=== PATIENT | female | born 1950 | race Caucasian/White ===

== ENCOUNTER → 2021-10-21 | Outpatient (CLI) | payer MEDICARE, MEDICAID ==
[2021-10-21 16:58] LABS: HEMOGLOBIN 12.9 g/dL (11.5-16.0); MEAN CORPUSCULAR HEMOGLOBIN 29 pg (25-34); WHITE BLOOD COUNT 8.7 10^3/uL (4.3-11.0)
[2021-10-21 16:59] LABS: HEMATOCRIT 40 % (35-52); MEAN CORPUSCULAR HGB CONC 32 g/dL (32-36); MEAN CORPUSCULAR VOLUME 89 fL (80-99); MEAN PLATELET VOLUME 11.7 fL (9.0-12.2); PLATELET COUNT 336 10^3/uL (130-400)
[2021-10-21 17:11] LABS: POTASSIUM 4.5 MMOL/L (3.6-5.0)
[2021-10-21 17:12] LABS: ALBUMIN 4.2 GM/DL (3.2-4.5); BILIRUBIN,TOTAL 0.3 MG/DL (0.1-1.0); CALCIUM 9.2 MG/DL (8.5-10.1); CREATININE SERUM 1.11 MG/DL (0.60-1.30); TOTAL PROTEIN 6.7 GM/DL (6.4-8.2)
== END ==
PROVIDERS: ATTEND Family Medicine
DX: R06.2 Wheezing (principal)
CPT/HCPCS: 36415; 80053; 85027

== ENCOUNTER 2022-08-05 03:51 | Inpatient (IN) | payer MEDICARE, MEDICAID ==
[~2022-08-05] VITALS: Ht 149.9 cm; Wt 86.4 kg
[2022-08-05] MEDS ORDERED: methylPREDNISolone 125 MG (Solu-MEDROL) VIAL IV STA (03:54)
--- NOTE | 2022-08-05 03:54 | ED Dyspnea ---
General Stated Complaint: SOB History of Present Illness Date Seen by Provider: Aug 05, 2022 Time Seen by Provider: 03:53 Initial Comments 71-year-old female presents with shortness of breath. Patient shortness of breath started approximately 45 minutes to arrival. longterm reports that she only has a history of hypertension that she is a "model resident" and that she just came to the desk complaining of shortness of breath after "drinking too much water" EMS reports that when she arrived she is around 85 to 88% with a lot of wheezing. They gave her a DuoNeb in route with minimal relief. Patient is only on blood pressure medication. She has no allergies. Allergies and Home Medications Allergies Coded Allergies: No Known Drug Allergies (Unverified , 08/05/22) Patient Home Medication List Home Medication List Reviewed: Yes Review of Systems Review of Systems Constitutional: No chills, No fever EENTM: No throat pain, No throat swelling Respiratory: orthopnea, short of breath, stridor Cardiovascular: No chest pain, No palpitations Gastrointestinal: abdominal pain, nausea Genitourinary: no symptoms reported Musculoskeletal: no symptoms reported Skin: no symptoms reported Psychiatric/Neurological: No Symptoms Reported Endocrine: No Symptoms Reported Physical Exam Vital Signs Vital Signs - First Documented 08/05/22 03:51 Temp 36.5 Pulse 128 Resp 30 B/P (MAP) 174/127 (143) Pulse Ox 89 O2 Delivery OxyMask O2 Flow Rate 7.00 FiO2 88 Capillary Refill : Height, Weight, BMI Height: '" Weight: lbs. oz. kg; BMI Method: General Appearance: Anxious, Moderate Distress, Obese HEENT: Other (Stridor) Respiratory: Decreased Breath Sounds, Stridor Cardiovascular: Irregularly Irregular, Other (Mild lower extremity edema) Gastrointestinal: Soft, Tenderness (epigastric ) Neurologic/Psychiatric: Alert, Oriented x3 Skin: Normal Color, Warm/Dry Progress/Results/Core Measures Results/Orders Lab Results Laboratory Tests Test 08/05/22 03:56 08/05/22 04:45 Range/Units White Blood Count 11.8 H 4.3-11.0 10^3/uL Red Blood Count 4.80 3.80-5.11 10^6/uL Hemoglobin 12.9 11.5-16.0 g/dL Hematocrit 41 35-52 % Mean Corpuscular Volume 85 80-99 fL Mean Corpuscular Hemoglobin 27 25-34 pg Mean Corpuscular Hemoglobin Concent 32 32-36 g/dL Red Cell Distribution Width 15.5 H 10.0-14.5 % Platelet Count 331 130-400 10^3/uL Mean Platelet Volume 11.5 9.0-12.2 fL Immature Granulocyte % (Auto) 0 % Neutrophils (%) (Auto) 64 42-75 % Lymphocytes (%) (Auto) 27 12-44 % Monocytes (%) (Auto) 5 0-12 % Eosinophils (%) (Auto) 3 0-10 % Basophils (%) (Auto) 1 0-10 % Neutrophils # (Auto) 7.5 1.8-7.8 10^3/uL Lymphocytes # (Auto) 3.2 1.0-4.0 10^3/uL Monocytes # (Auto) 0.6 0.0-1.0 10^3/uL Eosinophils # (Auto) 0.4 H 0.0-0.3 10^3/uL Basophils # (Auto) 0.1 0.0-0.1 10^3/uL Immature Granulocyte # (Auto) 0.0 0.0-0.1 10^3/uL Sodium Level 140 135-145 MMOL/L Potassium Level 4.1 3.6-5.0 MMOL/L Chloride Level 104 98-107 MMOL/L Carbon Dioxide Level 23 21-32 MMOL/L Anion Gap 13 5-14 MMOL/L Blood Urea Nitrogen 19 H 7-18 MG/DL Creatinine 1.09 0.60-1.30 MG/DL Estimat Glomerular Filtration Rate 54 BUN/Creatinine Ratio 17 Glucose Level 214 H 70-105 MG/DL Calcium Level 9.1 8.5-10.1 MG/DL Corrected Calcium 8.9 8.5-10.1 MG/DL Magnesium Level 2.2 1.6-2.4 MG/DL Total Bilirubin 0.5 0.1-1.0 MG/DL Aspartate Amino Transf (AST/SGOT) 14 5-34 U/L Alanine Aminotransferase (ALT/SGPT) 9 0-55 U/L Alkaline Phosphatase 131 40-136 U/L Troponin I < 0.30 <0.30 NG/ML C-Reactive Protein 0.43 <0.50 MG/DL Pro-B-Type Natriuretic Peptide 4735.0 H <125.0 PG/ML Total Protein 7.3 6.4-8.2 GM/DL Albumin 4.3 3.2-4.5 GM/DL Blood Gas Puncture Site RT. BRACHIAL Blood Gas Patient Temperature 36.5 Arterial Blood pH 7.33 *L 7.37-7.43 Arterial Blood Partial Pressure CO2 44 35-45 MMHG Arterial Blood Partial Pressure O2 306 H 79-93 MMHG Arterial Blood HCO3 23 23-27 MMOL/L Arterial Blood Total CO2 24.6 21.0-31.0 MMOL/L Arterial Blood Oxygen Saturation 100 94-100 % Arterial Blood Base Excess -2.8 L -2.5-2.5 MMOL/L Constantine Test NA Blood Gas Ventilator Setting NO Blood Gas Inspired Oxygen 100% BPAP Lipase 76 8-78 U/L My Orders Orders - BENTON,EZEKIEL L DO Rt Epinephrine (Racemic Epinephrine 2.25 (08/05/22 04:00) Methylprednisolone Sod Succ (Solu-Medrol (08/05/22 03:54) Hypertonic Saline 3% Neb (Rt-Hypertonic (08/05/22 04:00) Svn Small Volume Nebulizer (08/05/22 03:54) Chest 1 View Ap/Pa Only (08/05/22 03:54) Cbc With Automated Diff (08/05/22 03:54) Comprehensive Metabolic Panel (08/05/22 03:54) Magnesium (08/05/22 03:54) Probnp Fs (08/05/22 03:54) Crp Fs (08/05/22 03:54) Troponin I Fs (08/05/22 03:54) Ekg Tracing (08/05/22 03:54) O2 (08/05/22 03:54) Monitor-Rhythm Ecg Trace Only (08/05/22 03:54) Arterial Blood Gas (08/05/22 04:09) Diltiazem Injection (Cardizem Injection) (08/05/22 04:30) Lipase (08/05/22 04:25) Bipap (Bilevel) Set Up (08/05/22 04:43) Diltiazem Injection (Cardizem Injection) (08/05/22 05:00) Medications Given in ED Current Medications Medications Dose Ordered Sig/Lucila Route Start Time Stop Time Status Last Admin Dose Admin Diltiazem HCl 10 mg ONCE ONCE IVP 08/05/22 04:30 08/05/22 04:31 DC 08/05/22 04:24 10 MG Diltiazem HCl 20 mg ONCE ONCE IVP 08/05/22 05:00 08/05/22 05:01 DC 08/05/22 05:04 20 MG Epinephrine 0.5 ml ONCE ONCE INH 08/05/22 04:00 08/05/22 04:01 DC 08/05/22 04:04 0.5 ML Sodium Chloride Hypertonic 15 ml ONCE ONCE IH 08/05/22 04:00 08/05/22 04:01 DC 08/05/22 04:04 15 ML Vital Signs/I&O 08/05/22 08/05/22 08/05/22 08/05/22 03:51 03:51 04:12 04:24 Temp 36.5 Pulse 128 120 Resp 30 B/P (MAP) 174/127 (143) 149/85 Pulse Ox 89 88 O2 Delivery OxyMask OxyMask O2 Flow Rate 7.00 7.00 100.00 FiO2 88 08/05/22 08/05/22 05:04 05:10 Pulse 105 93 Resp 24 B/P (MAP) 142/88 142/88 (106) Pulse Ox 97 O2 Delivery NIV Bilevel O2 Flow Rate 40.00 Progress Progress Note : Progress Note Patient responded very well to BiPAP with improvement of her oxygen and breathing. Stridor improved with BiPAP. Patient is x-ray appears to have bilateral pulmonary edema. Patient's heart rate improved with Cardizem from the 120s to 140s down to about 70s. Patient was feeling much better and resting comfortably. Patient to be transferred to [facility] in the ICU to Dr. Rios. Patient was transferred in stable condition. Initial ECG Impression Date: Aug 05, 2022 Initial ECG Impression Time: 04:12 Initial ECG Rate: 126 Initial ECG Rhythm: A Fib/Flutter Initial ECG Impression: Atrial Fibrillation w/RVR Diagnostic Imaging Diagonstic Imaging: Xray Plain Films/CT/US/NM/MRI: chest Comments Pulmonary edema Critical Care Note Critical Care Total Time (minutes) 30 Progress Patient improved from acute respiratory distress been much more stable and improvement in heart rate. Patient admitted to ICU Departure Impression Primary Impression: Atrial fibrillation with RVR Additional Impression: Pulmonary edema Qualified Codes: J81.0 - Acute pulmonary edema Disposition: 30 STILL A PATIENT Condition: Improved Admissions Decision to Admit Reason: Admit from ER (General) Decision to Admit/Date: Aug 05, 2022 Time/Decision to Admit Time: 06:15 EZEKIEL BENTON DO Aug 05, 2022 03:54
[2022-08-05] MEDS ORDERED: RT-epiNEPHrine (RACEMIC) 2.25% 0.5 ML VIAL INH ONE (04:00)
[2022-08-05] MEDS ORDERED: RT-HYPERTONIC SALINE 3% 4 ML NEB IH ONE (04:00)
[2022-08-05 04:07] LABS: BASOPHILS # (AUTO) 0.1 10^3/uL (0.0-0.1); BASOPHILS % (AUTO) 1 % (0-10); EOSINOPHILS # (AUTO) 0.4 10^3/uL (0.0-0.3); EOSINOPHILS % (AUTO) 3 % (0-10); HEMATOCRIT 41 % (35-52); HEMOGLOBIN 12.9 g/dL (11.5-16.0); LYMPHOCYTES # (AUTO) 3.2 10^3/uL (1.0-4.0); LYMPHOCYTES % (AUTO) 27 % (12-44); MEAN CORPUSCULAR HEMOGLOBIN 27 pg (25-34); MEAN CORPUSCULAR HGB CONC 32 g/dL (32-36); MEAN CORPUSCULAR VOLUME 85 fL (80-99); MEAN PLATELET VOLUME 11.5 fL (9.0-12.2); MONOCYTES # (AUTO) 0.6 10^3/uL (0.0-1.0); MONOCYTES % (AUTO) 5 % (0-12); NEUTROPHILS # (AUTO) 7.5 10^3/uL (1.8-7.8); NEUTROPHILS % (AUTO) 64 % (42-75); PLATELET COUNT 331 10^3/uL (130-400); WHITE BLOOD COUNT 11.8 10^3/uL (4.3-11.0)
[2022-08-05 04:52] LABS: BUN/CREATININE RATIO 17; CALCIUM 9.1 MG/DL (8.5-10.1); CARBON DIOXIDE 23 MMOL/L (21-32); CHLORIDE 104 MMOL/L (98-107); CREATININE SERUM 1.09 MG/DL (0.60-1.30); GFR ESTIMATED 54; GLUCOSE 214 MG/DL (70-105); POTASSIUM 4.1 MMOL/L (3.6-5.0); SODIUM 140 MMOL/L (135-145)
[2022-08-05 04:53] LABS: ALANINE AMINOTRANSFERASE 9 U/L (0-55); ALBUMIN 4.3 GM/DL (3.2-4.5); ALKALINE PHOSPHATASE 131 U/L (40-136); BILIRUBIN,TOTAL 0.5 MG/DL (0.1-1.0); MAGNESIUM 2.2 MG/DL (1.6-2.4); TOTAL PROTEIN 7.3 GM/DL (6.4-8.2)
[2022-08-05 05:06] LABS: ABG BASE EXCESS -2.8 MMOL/L (-2.5-2.5); ABG OXYGEN SATURATION 100 % (94-100); ABG PCO2 44 MMHG (35-45); ABG PH 7.33 (7.37-7.43); ABG PO2 306 MMHG (79-93); ABG TCO2 24.6 MMOL/L (21.0-31.0)
[2022-08-05 05:07] LABS: INSPIRED O2 100% BPAP; PATIENT TEMP 36.5; VENTILATOR NO
--- NOTE | 2022-08-05 06:43 | Diagnostic Imaging Report ---
Indication: Shortness of breath. No previous for comparison. FINDINGS: There is cardiomegaly. Increased interstitial and alveolar infiltrates are noted bilaterally most prominently in the lower lungs. No pneumothorax or pleural effusion. IMPRESSION: Cardiomegaly with bilateral infiltrates. Findings could be secondary to inflammation or congestive failure. Dictated by: Dictated on workstation # [id number]
[2022-08-05] MEDS ORDERED: ENOXAPARIN 150 MG/ML (LOVENOX) SYR SQ SCH (09:30)
[2022-08-05] MEDS ORDERED: FUROSEMIDE 40 MG/4 ML INJ (LASIX) IVP NR (09:30)
[2022-08-05] MEDS: ENOXAPARIN 80 MG/0.8 ML (LOVENOX) SYR SQ SCH ×2 (09:44→22:40)
--- NOTE | 2022-08-05 11:13 | History & Physical ---
HPI History of Present Illness: Pt is wearing bipap which limits history. She says she is here because she drank too much water. She denies coughing or gagging while drinking. When asked how much she drank, she says she drank with a straw. This was around 1 am, and after that she became short of breath. In the ER she was found to have wheezing, a fib with RVR and pulmonary edema on CXR. She denies any PMH besides HTN. She specifically denies lung disease, but review of clinic chart does show COPD on her problem list and albuterol in her med list. Source: patient Exam Limitations: clinical condition Date seen by provider: Aug 05, 2022 Time Seen by Provider: 10:05 Attending Physician Spencer Dowling MD PCP Admitting Physician: Ayesha Rios MD Attending Physician: Ayesha Rios MD Consult Date of Admission Aug 05, 2022 at 08:52 Home Medications Home Medications Reviewed patient Home Medication Reconciliation performed by pharmacy medication reconciliations land mobile radio technician and/or nursing. Patients Allergies have been reviewed. 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 Past Medical History PMHx HTN Family Medical History Significant Family History: No Pertinent Family Hx Review of Systems ([facility]) Constitutional: other (unable to obtain due to clinical condition) Reviewed Test Results Reviewed Test Results Lab Laboratory Tests Test 08/05/22 03:56 08/05/22 04:45 08/05/22 06:27 08/05/22 09:57 Range/Units White Blood Count 11.8 H 4.3-11.0 10^3/uL Red Blood Count 4.80 3.80-5.11 10^6/uL Hemoglobin 12.9 11.5-16.0 g/dL Hematocrit 41 35-52 % Mean Corpuscular Volume 85 80-99 fL Mean Corpuscular Hemoglobin 27 25-34 pg Mean Corpuscular Hemoglobin Concent 32 32-36 g/dL Red Cell Distribution Width 15.5 H 10.0-14.5 % Platelet Count 331 130-400 10^3/uL Mean Platelet Volume 11.5 9.0-12.2 fL Immature Granulocyte % (Auto) 0 % Neutrophils (%) (Auto) 64 42-75 % Lymphocytes (%) (Auto) 27 12-44 % Monocytes (%) (Auto) 5 0-12 % Eosinophils (%) (Auto) 3 0-10 % Basophils (%) (Auto) 1 0-10 % Neutrophils # (Auto) 7.5 1.8-7.8 10^3/uL Lymphocytes # (Auto) 3.2 1.0-4.0 10^3/uL Monocytes # (Auto) 0.6 0.0-1.0 10^3/uL Eosinophils # (Auto) 0.4 H 0.0-0.3 10^3/uL Basophils # (Auto) 0.1 0.0-0.1 10^3/uL Immature Granulocyte # (Auto) 0.0 0.0-0.1 10^3/uL Sodium Level 140 135-145 MMOL/L Potassium Level 4.1 3.6-5.0 MMOL/L Chloride Level 104 98-107 MMOL/L Carbon Dioxide Level 23 21-32 MMOL/L Anion Gap 13 5-14 MMOL/L Blood Urea Nitrogen 19 H 7-18 MG/DL Creatinine 1.09 0.60-1.30 MG/DL Estimat Glomerular Filtration Rate 54 BUN/Creatinine Ratio 17 Glucose Level 214 H 70-105 MG/DL Calcium Level 9.1 8.5-10.1 MG/DL Corrected Calcium 8.9 8.5-10.1 MG/DL Magnesium Level 2.2 1.6-2.4 MG/DL Total Bilirubin 0.5 0.1-1.0 MG/DL Aspartate Amino Transf (AST/SGOT) 14 5-34 U/L Alanine Aminotransferase (ALT/SGPT) 9 0-55 U/L Alkaline Phosphatase 131 40-136 U/L Troponin I < 0.30 <0.30 NG/ML C-Reactive Protein 0.43 <0.50 MG/DL Pro-B-Type Natriuretic Peptide 4735.0 H <125.0 PG/ML Total Protein 7.3 6.4-8.2 GM/DL Albumin 4.3 3.2-4.5 GM/DL Blood Gas Puncture Site RT. BRACHIAL Blood Gas Patient Temperature 36.5 Arterial Blood pH 7.33 *L 7.37-7.43 Arterial Blood Partial Pressure CO2 44 35-45 MMHG Arterial Blood Partial Pressure O2 306 H 79-93 MMHG Arterial Blood HCO3 23 23-27 MMOL/L Arterial Blood Total CO2 24.6 21.0-31.0 MMOL/L Arterial Blood Oxygen Saturation 100 94-100 % Arterial Blood Base Excess -2.8 L -2.5-2.5 MMOL/L Constantine Test NA Blood Gas Ventilator Setting NO Blood Gas Inspired Oxygen 100% BPAP Lipase 76 8-78 U/L SARS-CoV-2 RNA (RT-PCR) Not Detected Not Detecte Thyroid Stimulating Hormone (TSH) 0.84 0.35-4.94 UIU/ML Radiology CXR 08/05/22:" IMPRESSION: Cardiomegaly with bilateral infiltrates. Findings could be secondary to inflammation or congestive failure." Physical Exam-([facility]) Physical Exam Vital Signs VS - Last 72 Hours, by Label 08/05/22 08/05/22 08/05/22 08/05/22 03:51 03:51 04:12 04:24 Temp 36.5 Pulse 128 120 Resp 30 B/P (MAP) 174/127 (143) 149/85 Pulse Ox 89 88 O2 Delivery OxyMask OxyMask O2 Flow Rate 7.00 7.00 100.00 FiO2 88 08/05/22 08/05/22 08/05/22 08/05/22 05:04 05:10 07:45 08:50 Temp 36.5 Pulse 105 93 79 Resp 24 24 B/P (MAP) 142/88 142/88 (106) 138/80 Pulse Ox 97 97 95 O2 Delivery NIV Bilevel NIV Bilevel NIV Bilevel O2 Flow Rate 40.00 7.00 7.00 FiO2 40 08/05/22 08/05/22 09:00 09:15 Pulse 107 101 Resp 40 B/P (MAP) 130/112 (118) Pulse Ox 96 O2 Delivery NIV Bilevel O2 Flow Rate 40.00 Capillary Refill : Less Than 3 Seconds General Appearance: mild distress Respiratory: wheezing Cardiovascular: no murmur, irregularly irregular Peripheral Pulses: 2+ Dorsalis Pedis (R), 2+ Left Dors-Pedis (L) Gastrointestinal: normal bowel sounds, non tender, soft Extremities: no pedal edema Neurologic/Psychiatric: alert, normal mood/affect, oriented x 3 Skin: warm/dry Assessment/Plan Assessment/Plan Admission Status: Inpatient Order (span 2 midnights) Reason for Inpatient Admission: New onset a fib and suspected CHF requiring bipap (1) Respiratory failure Status: Acute Assessment & Plan: Improved with bipap, etiology pulmonary edema vs COPD exacerbation. Qualifiers: Qualified Codes: J96.01 - Acute respiratory failure with hypoxia (2) Pulmonary edema Status: Acute Assessment & Plan: IV lasix x 1 now, echocardiogram ordered. Qualifiers: Qualified Codes: J81.0 - Acute pulmonary edema (3) Atrial fibrillation with RVR Status: Acute Assessment & Plan: New onset a fib, improved with one dose of cardizem in ER, Cardiology consulted, appreciate recommendations. Echo pending. TSH pending. Enoxaparin treatment dose started. (4) Hypertension Status: Chronic Assessment & Plan: Resume home meds Qualifiers: Qualified Codes: I10 - Essential (primary) hypertension (5) COPD (chronic obstructive pulmonary disease) Status: Chronic Assessment & Plan: Per chart review, although patient denies. Received steroids and breathing treatment in ER without much improvement in wheezing, unclear if COPD exacerbation vs CHF and pulmonary edema. Amee. (6) group home resident Status: Chronic Assessment & Plan: Pt unable to clarify why she is an NH resident, states she had a leg fracture a few years ago, but is able to walk now with walker. Per clinic chart review has diagnosis of cognitive dysfunction. Is alert and oriented this morning. (7) DVT prophylaxis Status: Acute Assessment & Plan: Treatment dose enoxaparin AYESHA RIOS MD Aug 05, 2022 11:12
[2022-08-05] MEDS ORDERED: LISI5TAB20 PO (11:56)
[2022-08-05] MEDS ORDERED: ACET-2267 PO (11:56)
[2022-08-05] MEDS ORDERED: POLY17PO6 PO (11:56)
[2022-08-05] MEDS ORDERED: MAGN400O7 PO (11:56)
[2022-08-05] MEDS ORDERED: ATOR10TA66 PO (11:56)
[2022-08-05] MEDS ORDERED: MAG355OR17 PO (11:56)
[2022-08-05] MEDS ORDERED: FAMO10TA43 PO (11:56)
[2022-08-05] MEDS ORDERED: CALC500T7 PO (11:56)
[2022-08-05] MEDS ORDERED: NYST15CR35 TP (12:12)
--- NOTE | 2022-08-05 12:31 | Tele-ICU Consult ---
History of Present Illness History of Present Illness Date Seen by Provider: Aug 05, 2022 Time Seen by Provider: 12:30 Date of Admission (Tele-ICU Physician , consultation) Available chart/ vitals / labs / Images reviewed H&P is from ER notes Patient's information available about PMH, Shx, Fhx allergy reviewed inEMR. ROS as per chart and RN report Now in ICU, hemodynamically stable Video assessment done using teleICU camera, rest of exam as per RN Discussed with RN. Consultants: Hospital course: (08/05) 71F Admitted from ER - for CHF, rapid afib--SR upon arrival to ICU A/P Acute reso failure due to pulm edema - placed on BIPAP in ER - to wean off -responded to Lasix A fib / RVR - new dx , TSH pending - AC with lovenox - ECHO - card consulted Dyspnea/ hypoxia on presentation - presented with wheezing, was tx with Solumedrol and Nebs in ER - can be related to pulm edema -->> re -eval needs for br-dilators Leiulocytosis - ? reactive - check UA Lines : periph , (Central Line Necessity Reviewed) Christianson: 08/05 OG: Nutrition: Analgesia: Anxiety/ delirium VTE Prophylaxis: lovenox full dose Stress Ulcer Prophylaxis: na Plans in collaboration with bedside consultants and IM MDs. Discussed with RN to reach out if any questions or concerns A total of 31 minutes of critical care time was devoted to this patient today, required to treat and/or prevent further deterioration of critical care condition ( as above ) . Allergies and Home Medications Allergies Coded Allergies: Penicillins (Verified Allergy, Unknown, 08/05/22) prednisone (Verified Allergy, Unknown, 08/05/22) Home Medications Acetaminophen 500 Mg Tablet, 1,000 MG PO Q6H PRN for PAIN-MILD (1-4), (Reported) Atorvastatin Calcium 10 Mg Tablet, 10 MG PO HS, (Reported) Calcium Carbonate 200 Mg Calcium (500 Mg) Tab.chew, 200 MG PO QID PRN for INDIGESTION, (Reported) Famotidine 10 Mg Tablet, 10 MG PO BID, (Reported) Lisinopril 5 Mg Tablet, 5 MG PO DAILY, (Reported) HOLD AND CALL DR. PALACIOS IF SBP IS LESS THAN OR EQUAL 90 OR GREATER THEN OR EQUAL TO 160 Mag Hydrox/Al Hydrox/Simeth 400 Mg-400 Mg-40 Mg/5 Ml Oral.susp, 30 ML PO Q4H PRN for INDIGESTION, (Reported) Magnesium Hydroxide 400 Mg/5 Ml Oral.susp, 30 ML PO PRN PRN for CONSTIPATION-7TH LINE, (Reported) Nystatin 100,000 Unit/Gram Cream..g., 1 APPLIC TP Q12H PRN for SKIN CONDITION, (Reported) APPLY TO ABDOMINAL FOLDS AND GROIN Polyethylene Glycol 3350 17 Gram Powd.pack, 17 GM PO DAILY PRN for CONSTIPATION- 2ND LINE, (Reported) Past Medical/Social/Family Hx Patient Social History Tobacco Use?: Yes Tobacco type used: Cigarettes Smoking Status: Current Everyday Smoker Use of E-Cig and/or Vaping dev: No Substance use?: No Alcohol Use?: No Pt stated abuse/neglect: No Immunizations Up To Date Influenza Vaccine Up-to-Date: Yes; Up-to-Date Current Status status: No Advance Directives: No Communicates: Verbally Primary Language: Citizen Of [place] Preferred Spoken Language: Citizen [place] Is interpretation needed?: No Implanted or Applied Medical D: None Past Medical History PMHx HTN Review of Systems Constitutional: see HPI Focused Exam Height, Weight, BMI Height: '" Weight: lbs. oz. kg; 39.74 BMI Method: Exam Exam Patient acknowledged, consented, and participated in this virtual visit which was conducted using real time audio/video Vital Signs Date Time Temp Pulse Resp B/P (MAP) Pulse Ox O2 Delivery O2 Flow Rate FiO2 08/05/22 11:00 87 17 139/91 (107) 96 NIV Bilevel 35.00 08/05/22 10:00 96 20 143/96 (112) 92 NIV Bilevel 40.00 08/05/22 09:15 101 08/05/22 09:00 107 40 130/112 (118) 96 NIV Bilevel 40.00 08/05/22 08:50 95 NIV Bilevel 40 08/05/22 07:45 36.5 79 24 138/80 97 NIV Bilevel 7.00 7.00 08/05/22 05:10 93 24 142/88 (106) 97 NIV Bilevel 40.00 08/05/22 05:04 105 142/88 08/05/22 04:24 120 149/85 08/05/22 04:12 100.00 08/05/22 03:51 88 OxyMask 7.00 88 08/05/22 03:51 36.5 128 30 174/127 (143) 89 OxyMask 7.00 Height & Weight Height: '" Weight: lbs. oz. kg; 39.74 BMI Method: General Appearance: No Apparent Distress, Anxious, Moderate Distress, Obese HEENT: Other (Stridor) Respiratory: Decreased Breath Sounds, Stridor Cardiovascular: Irregularly Irregular, Other (Mild lower extremity edema) Capillary Refill: Less Than 3 Seconds Peripheral Pulses: 2+ Dorsalis Pedis (R), 2+ Left Dors-Pedis (L) Gastrointestinal: normal bowel sounds, non tender, soft Neurologic/Psychiatric: Alert, Oriented x3 Skin: Normal Color, Warm/Dry Results Lab Laboratory Tests 08/05/22 03:56 Assessment/Plan Assessment/Plan 1 DESMOND CUEVAS MD Aug 05, 2022 12:30
--- NOTE | 2022-08-05 12:52 | Consultation-Cardiology ---
HPI-Cardiology Cardiology Consultation Date of Consultation 08/05/22 Date of Admission Time Seen by Provider: 12:48 Indication: Tachycardia HPI 71-year-old lady with no significant past cardiac history, came in for increasing shortness of breath, currently on BiPAP. Unable to obtain full history, history was obtained by reviewing her record. Patient did not have chest pain, she was noted to have tachycardia with irregular heartbeat suspicious of underlying atrial fibrillation Home Medications & Allergies Allergies: Coded Allergies: Penicillins (Verified Allergy, Unknown, 08/05/22) prednisone (Verified Allergy, Unknown, 08/05/22) Home Medication List Reviewed: Yes AOP-[id number] Hx Patient Social History Marital Status: Smoking Status: Current Everyday Smoker Have you traveled recently?: No Alcohol Use?: No Past Medical History Discussed below Family Medical History Significant Family History: No Pertinent Family Hx Family Medical Hx Noncontributory Review of Systems-General Review of Systems Constitutional: see HPI, malaise, weakness EENTM: see HPI; No throat pain, No throat swelling Respiratory: see HPI, orthopnea, short of breath, stridor Cardiovascular: see HPI; No chest pain; edema; No palpitations Gastrointestinal: see HPI, abdominal pain, nausea Genitourinary: no symptoms reported, see HPI Musculoskeletal: no symptoms reported Skin: no symptoms reported, see HPI Psychiatric/Neurological: No Symptoms Reported, See HPI Reviewed Test Results Reviewed Test Results Lab Laboratory Tests Test 08/05/22 03:56 08/05/22 04:45 08/05/22 06:27 08/05/22 09:57 Range/Units White Blood Count 11.8 H 4.3-11.0 10^3/uL Red Blood Count 4.80 3.80-5.11 10^6/uL Hemoglobin 12.9 11.5-16.0 g/dL Hematocrit 41 35-52 % Mean Corpuscular Volume 85 80-99 fL Mean Corpuscular Hemoglobin 27 25-34 pg Mean Corpuscular Hemoglobin Concent 32 32-36 g/dL Red Cell Distribution Width 15.5 H 10.0-14.5 % Platelet Count 331 130-400 10^3/uL Mean Platelet Volume 11.5 9.0-12.2 fL Immature Granulocyte % (Auto) 0 % Neutrophils (%) (Auto) 64 42-75 % Lymphocytes (%) (Auto) 27 12-44 % Monocytes (%) (Auto) 5 0-12 % Eosinophils (%) (Auto) 3 0-10 % Basophils (%) (Auto) 1 0-10 % Neutrophils # (Auto) 7.5 1.8-7.8 10^3/uL Lymphocytes # (Auto) 3.2 1.0-4.0 10^3/uL Monocytes # (Auto) 0.6 0.0-1.0 10^3/uL Eosinophils # (Auto) 0.4 H 0.0-0.3 10^3/uL Basophils # (Auto) 0.1 0.0-0.1 10^3/uL Immature Granulocyte # (Auto) 0.0 0.0-0.1 10^3/uL Sodium Level 140 135-145 MMOL/L Potassium Level 4.1 3.6-5.0 MMOL/L Chloride Level 104 98-107 MMOL/L Carbon Dioxide Level 23 21-32 MMOL/L Anion Gap 13 5-14 MMOL/L Blood Urea Nitrogen 19 H 7-18 MG/DL Creatinine 1.09 0.60-1.30 MG/DL Estimat Glomerular Filtration Rate 54 BUN/Creatinine Ratio 17 Glucose Level 214 H 70-105 MG/DL Calcium Level 9.1 8.5-10.1 MG/DL Corrected Calcium 8.9 8.5-10.1 MG/DL Magnesium Level 2.2 1.6-2.4 MG/DL Total Bilirubin 0.5 0.1-1.0 MG/DL Aspartate Amino Transf (AST/SGOT) 14 5-34 U/L Alanine Aminotransferase (ALT/SGPT) 9 0-55 U/L Alkaline Phosphatase 131 40-136 U/L Troponin I < 0.30 <0.30 NG/ML C-Reactive Protein 0.43 <0.50 MG/DL Pro-B-Type Natriuretic Peptide 4735.0 H <125.0 PG/ML Total Protein 7.3 6.4-8.2 GM/DL Albumin 4.3 3.2-4.5 GM/DL Blood Gas Puncture Site RT. BRACHIAL Blood Gas Patient Temperature 36.5 Arterial Blood pH 7.33 *L 7.37-7.43 Arterial Blood Partial Pressure CO2 44 35-45 MMHG Arterial Blood Partial Pressure O2 306 H 79-93 MMHG Arterial Blood HCO3 23 23-27 MMOL/L Arterial Blood Total CO2 24.6 21.0-31.0 MMOL/L Arterial Blood Oxygen Saturation 100 94-100 % Arterial Blood Base Excess -2.8 L -2.5-2.5 MMOL/L Constantine Test NA Blood Gas Ventilator Setting NO Blood Gas Inspired Oxygen 100% BPAP Lipase 76 8-78 U/L SARS-CoV-2 RNA (RT-PCR) Not Detected Not Detecte Thyroid Stimulating Hormone (TSH) 0.84 0.35-4.94 UIU/ML Radiology CXR 08/05/22:" IMPRESSION: Cardiomegaly with bilateral infiltrates. Findings could be secondary to inflammation or congestive failure. Physical Exam Physical Exam Vital Signs Vital Signs - First Documented 08/05/22 03:51 Temp 36.5 Pulse 128 Resp 30 B/P (MAP) 174/127 (143) Pulse Ox 89 O2 Delivery OxyMask O2 Flow Rate 7.00 FiO2 88 Capillary Refill : Less Than 3 Seconds Height, Weight, BMI Height: '" Weight: lbs. oz. kg; 39.74 BMI Method: General Appearance: No Apparent Distress, Anxious, Moderate Distress, Obese Eyes: Bilateral Eye Normal Inspection, Bilateral Eye PERRL, Bilateral Eye EOMI HEENT: Other Neck: Full Range of Motion, Normal Inspection, Non Tender, Supple, Carotid Bruit Respiratory: Decreased Breath Sounds, Stridor Cardiovascular: Irregularly Irregular, Other Gastrointestinal: Soft, Tenderness (epigastric ) Back: Normal Inspection, No CVA Tenderness, No Vertebral Tenderness Extremity: Normal Capillary Refill, Normal Inspection, Normal Range of Motion, Non Tender, No Calf Tenderness, No Pedal Edema Neurologic/Psychiatric: Alert, Oriented x3 Skin: Normal Color, Warm/Dry Lymphatic: No Adenopathy A/P-Cardiology Admission Diagnosis Acute respiratory failure Multifocal atrial tachycardia Pulmonary edema Hypertension Assessment/Plan Acute respiratory failure, maintained on BiPAP Receiving diuretics, improving slowly. Probably secondary to pulmonary edema Irregular heart rate with tachycardia, review of EKG showing multifocal atrial tachycardia. Probably secondary to hypoxemia. Continue with BiPAP and I will add low-dose beta-blockers. I will evaluate 2D echocardiogram Congestive heart failure, acute left ventricular systolic dysfunction, probably secondary to hypoxemia and tachycardia. I will evaluate 2D echo, started on diuretics Hypertension, maintained on lisinopril as an outpatient Continue to monitor blood pressure and restart home medication Patient is a [facility] resident BEAN CARDONA MD Aug 05, 2022 12:52
[2022-08-05] MEDS: meTOprolol 5 MG/5 ML (LOPRESSOR) VIAL IV SCH ×3 (13:10→23:40)
[2022-08-05] MEDS ORDERED: ACETAMINOPHEN 500 MG TAB (TYLENOL) PO PRN (13:15)
[2022-08-05] MEDS ORDERED: MILK OF MAGNESIA 400 MG/5 ML 30 ML UDC PO PRN (13:15)
[2022-08-05] MEDS ORDERED: NYSTATIN CREAM (MYCOSTATIN) 30 GM TUBE TP PRN (13:15)
[2022-08-05] MEDS ORDERED: polyethylene glycoL POWDER 17 GM (MIRALAX) PACK PO PRN (13:15)
[2022-08-05] MEDS ORDERED: ANTACID SUSP 30 ML UDC (MYLANTA) PO PRN (13:15)
[2022-08-05 13:23] LABS: BILIRUBIN,URINE NEGATIVE (NEGATIVE); CLARITY,URINE CLEAR; COLOR,URINE YELLOW; GLUCOSE, URINE (UA) 1+ (NEGATIVE); KETONES,URINE NEGATIVE (NEGATIVE); LEUKOCYTE ESTERASE ,URINE NEGATIVE (NEGATIVE); NITRITE,URINE NEGATIVE (NEGATIVE); PROTEIN,URINE NEGATIVE (NEGATIVE)
[2022-08-05 13:45] LABS: BACTERIA,URINE NEGATIVE /HPF; RBC,URINE 0-2 /HPF
[2022-08-05] MEDS ORDERED: MAGNESIUM 1 GM/100 ML IVPB 200 ML IV ONE (14:21)
[2022-08-05] MEDS: MAGNESIUM 1 GM/100 ML IVPB 100 ML IV SCH ×2 (14:32→14:35)
[2022-08-05 14:36] LABS: ABG BASE EXCESS 2.8 MMOL/L (-2.5-2.5); ABG OXYGEN SATURATION 97 % (94-100); ABG PCO2 38 MMHG (35-45); ABG PH 7.45 (7.37-7.43); ABG PO2 66 MMHG (79-93)
[2022-08-05 14:39] LABS: ALLENS TEST YES-POS; BASOPHILS % (AUTO) 0 % (0-10); EOSINOPHILS % (AUTO) 0 % (0-10); HEMATOCRIT 41 % (35-52); HEMOGLOBIN 12.9 g/dL (11.5-16.0); INSPIRED O2 35%; LYMPHOCYTES # (AUTO) 0.4 10^3/uL (1.0-4.0); LYMPHOCYTES % (AUTO) 6 % (12-44); MEAN CORPUSCULAR HEMOGLOBIN 27 pg (25-34); MEAN CORPUSCULAR HGB CONC 32 g/dL (32-36); MEAN CORPUSCULAR VOLUME 85 fL (80-99); MEAN PLATELET VOLUME 11.2 fL (9.0-12.2); MONOCYTES # (AUTO) 0.1 10^3/uL (0.0-1.0); MONOCYTES % (AUTO) 1 % (0-12); NEUTROPHILS # (AUTO) 6.1 10^3/uL (1.8-7.8); NEUTROPHILS % (AUTO) 92 % (42-75); PLATELET COUNT 277 10^3/uL (130-400); VENTILATOR NO; WHITE BLOOD COUNT 6.7 10^3/uL (4.3-11.0)
[2022-08-05] MEDS: RT-ALBUTEROL/IPRATROPIUM 3 ML (DUONEB) VIAL INH SCH ×3 (14:46→22:59)
[2022-08-05 14:48] LABS: PROTHROMBIN TIME PATIENT 13.7 SEC (12.2-14.7)
[2022-08-05 14:58] LABS: ALBUMIN 4.1 GM/DL (3.2-4.5); BILIRUBIN,TOTAL 0.7 MG/DL (0.1-1.0); CALCIUM 8.9 MG/DL (8.5-10.1); CREATININE SERUM 1.22 MG/DL (0.60-1.30); PHOSPHORUS 3.8 MG/DL (2.3-4.7); TOTAL PROTEIN 7.1 GM/DL (6.4-8.2)
[2022-08-05 15:04] LABS: ATYPICAL LYMPHOCYTES 1 %; BAND NEUTROPHILS 1 %; EOSINOPHILS % (MANUAL) 1 %; LYMPHOCYTES % (MANUAL) 7 %; MONOCYTES % (MANUAL) 2 %; NEUTROPHILS % (MANUAL) 88 %
[2022-08-05 15:05] LABS: HYPERSEGMENTED NEUT SLIGHT; MICROCYTOSIS SLIGHT
[2022-08-05] MEDS: FUROSEMIDE 40 MG/4 ML INJ (LASIX) IVP SCH (17:15)
[2022-08-05] MEDS: FAMOTIDINE 20 MG (PEPCID) TABLET PO SCH (20:01)
[2022-08-05] MEDS: AtorvaSTATin TABLET 10 MG TABLET PO SCH (20:01)
[2022-08-05] MEDS: CALCIUM CARBONATE 500 MG (TUMS) TAB.CHEW PO PRN (20:01)
[2022-08-05] MEDS ORDERED: NON-FORMULARY MEDICATION 1 EA EA (Famotidine (Pepcid AC) 10 MG) PO SCH (21:00)
[2022-08-06] MEDS ORDERED: CATHETER FLUSH 10 ML SYR IVP PRN (00:30)
[2022-08-06] MEDS: CALCIUM CARBONATE 500 MG (TUMS) TAB.CHEW PO PRN ×2 (00:40→21:27)
[2022-08-06] MEDS: RT-ALBUTEROL/IPRATROPIUM 3 ML (DUONEB) VIAL INH SCH ×6 (02:51→21:48)
[2022-08-06] MEDS: CATHETER FLUSH 10 ML SYR IVP SCH ×3 (05:19→21:31)
[2022-08-06] MEDS: meTOprolol 5 MG/5 ML (LOPRESSOR) VIAL IV SCH (05:19)
[2022-08-06 05:20] LABS: BASOPHILS % (AUTO) 0 % (0-10); EOSINOPHILS % (AUTO) 0 % (0-10); HEMATOCRIT 36 % (35-52); HEMOGLOBIN 11.3 g/dL (11.5-16.0); LYMPHOCYTES # (AUTO) 0.9 10^3/uL (1.0-4.0); LYMPHOCYTES % (AUTO) 7 % (12-44); MEAN CORPUSCULAR HEMOGLOBIN 26 pg (25-34); MEAN CORPUSCULAR HGB CONC 31 g/dL (32-36); MEAN CORPUSCULAR VOLUME 84 fL (80-99); MEAN PLATELET VOLUME 11.3 fL (9.0-12.2); MONOCYTES # (AUTO) 0.6 10^3/uL (0.0-1.0); MONOCYTES % (AUTO) 5 % (0-12); NEUTROPHILS # (AUTO) 10.4 10^3/uL (1.8-7.8); NEUTROPHILS % (AUTO) 87 % (42-75); PLATELET COUNT 263 10^3/uL (130-400)
[2022-08-06 05:33] LABS: POTASSIUM 3.6 MMOL/L (3.6-5.0)
[2022-08-06 05:34] LABS: CALCIUM 8.6 MG/DL (8.5-10.1)
[2022-08-06 05:39] LABS: CREATININE SERUM 1.32 MG/DL (0.60-1.30)
[2022-08-06 05:41] LABS: MAGNESIUM 2.7 MG/DL (1.6-2.4)
[2022-08-06] MEDS ORDERED: NS IV 500 ML 500 ML IV PRN (05:45)
[2022-08-06] MEDS: MAGNESIUM 1 GM/100 ML IVPB 100 ML IV SCH (06:02)
[2022-08-06] MEDS: POTASSIUM CL 10MEQ/50ML IVPB 50 ML IV SCH (06:02)
[2022-08-06] MEDS: KCL 20 MEQ TAB (K-DUR) PO SCH (06:03)
[2022-08-06] MEDS ORDERED: AMIODARONE FOR BOLUS 150 MG in NS (IVPB) 100 ML IV ONE (08:00)
[2022-08-06] MEDS ORDERED: KCL 20 MEQ TAB (K-DUR) PO ONE (08:00)
--- NOTE | 2022-08-06 08:05 | Cardiology Progress Note ---
Subjective Date Seen by Provider: Aug 06, 2022 Time Seen by Provider: 08:01 Subjective/Events-last exam Patient is laying down in bed, feeling better today. No new complaint. Had multiple episodes of ventricular tachycardia. Review of Systems General: No Chills, No Night Sweats; Fatigue, Malaise; No Appetite, No Other HEENT: No Head Aches, No Visual Changes, No Eye Pain, No Ear Pain, No Dysphasia, No Sinus Congestion, No Post Nasal Drip, No Sore Throat, No Other Pulmonary: Dyspnea; No Cough, No Pleuritic Chest Pain, No Other Cardiovascular: No: Chest Pain, Palpitations, Orthopnea, Paroxysmal Noc. Dyspnea, Edema, Lt Headedness, Other Objective-Cardiology Exam Last Set of Vital Signs Vital Signs 08/05/22 08/06/22 08/06/22 23:59 07:43 11:00 Temp 36.0 Pulse 65 Resp 15 B/P (MAP) 104/76 (85) Pulse Ox 96 O2 Delivery High Flow N/C O2 Flow Rate 4.00 FiO2 35 I&O Intake and Output 08/06/22 00:00 Intake Total 902 ml Output Total 3325 ml Balance -2423 ml Intake Oral 702 ml IV Total 200 ml Output Urine Total 3325 ml # Voids 1 Daily Weight Change No General: Alert, Oriented X3, Cooperative HEENT: Atraumatic, PERRLA Neck: Supple, No JVD, No Thyromegaly Lungs: Clear to Auscultation, Normal Air Movement Heart: Regular Rate, Normal S1, Normal S2, No Murmurs Abdomen: Normal Bowel Sounds, Soft, No Tenderness, No Hepatosplenomegaly, No Masses Extremities: No Clubbing, No Cyanosis, No Edema, Normal Pulses, No Tenderness/Swelling Skin: No Rashes, No Breakdown, No Significant Lesion Neuro: Normal Gait, Normal Speech, Strength at 5/5 X4 Ext, Normal Tone, Sensation Intact Psych/Mental Status: Mental Status NL, Mood NL Results Lab Laboratory Tests 08/05/22 14:30 08/06/22 05:06 A/P-Cardiology Admission Diagnosis Acute respiratory failure Multifocal atrial tachycardia Pulmonary edema Hypertension Assessment/Plan Acute respiratory failure, maintained on BiPAP Receiving diuretics, improving slowly. Probably secondary to pulmonary edema Irregular heart rate with tachycardia, review of EKG showing multifocal atrial tachycardia. Probably secondary to hypoxemia. I am starting amiodarone bolus and a drip. Multiple episodes of sustained ventricular tachycardia, severe cardiomyopathy. Will evaluate for LifeVest, starting amiodarone Congestive heart failure, acute left ventricular systolic dysfunction, dilated cardiomyopathy NYHA class III-IV Planning to proceed with cardiac catheterization possible PTCA Switching lisinopril to losartan, Switching Lopressor IV to Coreg orally Arranging for LifeVest and monitor closely Hypertension, maintained on lisinopril as an outpatient I am changing blood pressure medication as described above Patient is a longterm resident BEAN CARDONA MD Aug 06, 2022 08:05
--- NOTE | 2022-08-06 08:22 | Tele-ICU Progress Note ---
Subjective Date Seen by a Provider: Aug 06, 2022 Time Seen by a Provider: 08:22 Subjective/Events-last exam (Tele-ICU Physician , Progress Note ) Available chart/ vitals / labs / Images reviewed Video assessment done using teleICU camera, rest of exam as per RN Discussed with RN Events overnight : Afebrile hemodynamically stable Respiratory - 5l I/O = Drips: Pressors- no Consultants: Hospital course: (08/05) 71F Admitted from ER - for CHF, rapid afib--SR upon arrival to ICU 09/06 - 5 L , A/P Acute reso failure due to pulm edema - placed on BIPAP in ER - resoleved -with diuresis on 5 L nC now A fib / RVR - new dx , TSH wnl - amio gtt as per cards - AC with lovenox - ECHO 08/05 - EF 30 % - card consulted Acute left ventricular systolic dysfunction, dilated cardiomyopathy -cardiac catheterization possible PTCA planned for 08/07 Dyspnea/ hypoxia on presentation - presented with wheezing, was tx with Solumedrol and Nebs in ER - can be related to pulm edema -->> re -eval needs for br-dilators HELGA - ? result of diuresis - as per cards Leiulocytosis - ? reactive - UA WNL Lines : periph , (Central Line Necessity Reviewed) Christianson: 08/05 OG: Nutrition: Analgesia: Anxiety/ delirium VTE Prophylaxis: lovenox full dose Stress Ulcer Prophylaxis: na h2bl Plans in collaboration with bedside consultants and IM MDs. Discussed with RN to reach out if any questions or concerns A total of 20 minutes of critical care time was devoted to this patient today, required to treat and/or prevent further deterioration of critical care condition ( as above ) . Sepsis Event Evaluation Height, Weight, BMI Height: '" Weight: lbs. oz. kg; 39.74 BMI Method: Exam Exam Patient acknowledged, consented, and participated in this virtual visit which was conducted using real time audio/video Vital Signs Date Time Temp Pulse Resp B/P (MAP) Pulse Ox O2 Delivery O2 Flow Rate FiO2 08/06/22 07:43 36.0 08/06/22 06:00 76 15 94/73 (80) 97 High Flow N/C 5.00 08/06/22 05:00 78 17 101/59 (73) 96 High Flow N/C 5.00 08/06/22 04:00 36.1 08/06/22 04:00 96 High Flow N/C 5.00 08/06/22 04:00 75 16 89/57 (68) 98 High Flow N/C 5.00 08/06/22 03:00 80 18 115/69 (84) 95 High Flow N/C 5.00 08/06/22 02:34 94 High Flow N/C 5.00 08/06/22 02:00 77 18 111/71 (84) 94 High Flow N/C 5.00 08/06/22 01:08 81 08/06/22 01:00 88 17 94/64 (74) 94 High Flow N/C 5.00 08/06/22 00:24 High Flow N/C 5.00 08/06/22 00:00 73 20 94/64 (74) 100 NIV Bilevel 35.00 08/06/22 00:00 36.0 08/05/22 23:59 96 NIV Bilevel 35 08/05/22 23:23 79 24 98 35.00 08/05/22 23:00 75 15 89/51 (64) 97 NIV Bilevel 35.00 08/05/22 22:30 NIV Bilevel 35.00 08/05/22 22:00 84 18 124/80 (95) 94 High Flow N/C 5.00 08/05/22 21:00 81 21 98/75 (83) 95 High Flow N/C 5.00 08/05/22 20:00 81 18 95/73 (80) 96 High Flow N/C 5.00 08/05/22 20:00 94 High Flow N/C 5.00 08/05/22 20:00 35.1 08/05/22 19:38 High Flow N/C 5.00 08/05/22 19:05 81 08/05/22 19:00 82 18 104/63 (77) 97 High Flow N/C 6.00 08/05/22 18:58 96 High Flow N/C 6.00 08/05/22 18:00 76 16 112/76 (88) 95 Nasal Cannula 6.00 08/05/22 17:00 77 21 98/65 (76) 92 Nasal Cannula 6.00 08/05/22 16:00 82 13 98/70 (79) 91 Nasal Cannula 6.00 08/05/22 16:00 93 High Flow N/C 6.00 08/05/22 15:00 80 10 100/68 (79) 91 Nasal Cannula 6.00 08/05/22 14:50 Nasal Cannula 6.00 08/05/22 14:46 110 24 100 40.00 08/05/22 14:00 79 21 103/64 (77) 96 NIV Bilevel 35.00 08/05/22 13:30 68 38 113/71 (85) 96 NIV Bilevel 35.00 08/05/22 13:00 92 25 112/73 (86) 96 NIV Bilevel 35.00 08/05/22 12:50 90 08/05/22 12:30 86 14 122/95 (104) 95 NIV Bilevel 35.00 08/05/22 12:00 36.0 08/05/22 12:00 NIV Bilevel 35 08/05/22 12:00 87 14 122/81 (95) 96 NIV Bilevel 35.00 08/05/22 11:30 90 16 144/97 (113) 96 NIV Bilevel 35.00 08/05/22 11:00 87 17 139/91 (107) 96 NIV Bilevel 35.00 08/05/22 10:30 92 18 140/91 (107) 93 NIV Bilevel 40.00 08/05/22 10:00 110 24 100 40.00 08/05/22 10:00 96 20 143/96 (112) 92 NIV Bilevel 40.00 08/05/22 09:30 96 20 144/100 (115) 95 NIV Bilevel 40.00 08/05/22 09:15 101 08/05/22 09:00 107 40 130/112 (118) 96 NIV Bilevel 40.00 08/05/22 09:00 35.8 08/05/22 08:50 95 NIV Bilevel 40 I & O 08/06/22 07:00 Intake Total 1152 ml Output Total 3575 ml Balance -2423 ml Height & Weight Height: '" Weight: lbs. oz. kg; 39.74 BMI Method: General Appearance: No Apparent Distress, Anxious, Moderate Distress, Obese HEENT: Other Neck: Full Range of Motion, Normal Inspection, Non Tender, Supple, Carotid Bruit Respiratory: Decreased Breath Sounds, Stridor Cardiovascular: Irregularly Irregular, Other Capillary Refill: Less Than 3 Seconds Peripheral Pulses: 2+ Dorsalis Pedis (R), 2+ Left Dors-Pedis (L) Gastrointestinal: normal bowel sounds, non tender, soft Extremity: Normal Capillary Refill, Normal Inspection, Normal Range of Motion, Non Tender, No Calf Tenderness, No Pedal Edema Neurologic/Psychiatric: Alert, Oriented x3 Skin: Normal Color, Warm/Dry Lymphatic: No Adenopathy Results Lab Laboratory Tests 08/05/22 03:56 08/05/22 14:30 08/06/22 05:06 Assessment/Plan Assessment/Plan 1 DESMOND CUEVAS MD Aug 06, 2022 08:22
[2022-08-06] MEDS: FUROSEMIDE 40 MG/4 ML INJ (LASIX) IVP SCH (08:56)
[2022-08-06] MEDS: LOSARTAN 25 MG (COZAAR) TAB PO SCH (08:57)
[2022-08-06] MEDS: ENOXAPARIN 80 MG/0.8 ML (LOVENOX) SYR SQ SCH ×2 (08:57→21:27)
[2022-08-06] MEDS ORDERED: lisINopril 5 MG (PRINIVIL) TABLET PO SCH (09:00)
[2022-08-06] MEDS: AMIODARONE INJECTION 450 MG in NORMAL SALINE 250 ML IV SCH ×2 (09:35→15:54)
--- NOTE | 2022-08-06 11:29 | Progress Note ---
Subjective Subjective/Events-last exam Pt alert and eating breakfast, wearing 5 lpm supplemental oxygen at this time. States she is feeling okay, denies shortness of breath. Mostly repeats about drinking too much water and then ending up in the hospital. Objective Exam Last Set of Vital Signs Vital Signs Date Time Temp Pulse Resp B/P (MAP) Pulse Ox O2 Delivery O2 Flow Rate FiO2 08/06/22 11:00 65 15 104/76 (85) 96 High Flow N/C 4.00 08/06/22 07:43 36.0 08/05/22 23:59 35 Capillary Refill : Less Than 3 Seconds I&O Intake and Output 08/06/22 00:00 Intake Total 902 ml Output Total 3325 ml Balance -2423 ml Intake Oral 702 ml IV Total 200 ml Output Urine Total 3325 ml # Voids 1 Daily Weight Change No General: Alert, No Acute Distress Lungs: Clear to Auscultation Heart: Other (irregularly irregular) Extremities: No Edema Psych/Mental Status: Mood NL Results/Procedures Lab Laboratory Tests 08/05/22 13:10: Urine Color YELLOW, Urine Clarity CLEAR, Urine pH 7.0, Urine Specific [place] 1.015L, Urine Protein NEGATIVE, Urine Glucose (UA) 1+H, Urine Ketones NEGATIVE, Urine Nitrite NEGATIVE, Urine Bilirubin NEGATIVE, Urine Urobilinogen 0.2, Urine Leukocyte Esterase NEGATIVE, Urine RBC (Auto) TRACE-IH, Urine RBC 0-2, Urine WBC NONE, Urine Crystals NONE, Urine Bacteria NEGATIVE, Urine Casts NONE, Urine Mucus NEGATIVE, Urine Culture Indicated NO 08/05/22 14:30: White Blood Count 6.7, Red Blood Count 4.83, Hemoglobin 12.9, Hematocrit 41, Mean Corpuscular Volume 85, Mean Corpuscular Hemoglobin 27, Mean Corpuscular Hemoglobin Concent 32, Red Cell Distribution Width 15.2H, Platelet Count 277, Mean Platelet Volume 11.2, Immature Granulocyte % (Auto) 0, Neutrophils (%) (Auto) 92H, Lymphocytes (%) (Auto) 6L, Monocytes (%) (Auto) 1, Eosinophils (%) (Auto) 0, Basophils (%) (Auto) 0, Neutrophils # (Auto) 6.1, Lymphocytes # (Auto) 0.4L, Monocytes # (Auto) 0.1, Eosinophils # (Auto) 0.0, Basophils # (Auto) 0.0, Immature Granulocyte # (Auto) 0.0, Neutrophils % (Manual) 88, Lymphocytes % (Manual) 7, Monocytes % (Manual) 2, Eosinophils % (Manual) 1, Band Neutrophils 1, Hypersegmented Neutrophils SLIGHT, Atypical Lymphocytes 1, Microcytosis SLIGHT, Prothrombin Time 13.7, INR Comment 1.0, Blood Gas Puncture Site LT RAD, Blood Gas Patient Temperature 96.0, Arterial Blood pH 7.45H, Arterial Blood Partial Pressure CO2 38, Arterial Blood Partial Pressure O2 66L, Arterial Blood HCO3 27, Arterial Blood Total CO2 28.0, Arterial Blood Oxygen Saturation 97, Arterial Blood Base Excess 2.8H, Constantine Test YES-POS, Blood Gas Ventilator Setting NO, Blood Gas Inspired Oxygen 35%, Sodium Level 140, Potassium Level 4.0, Chloride Level 101, Carbon Dioxide Level 28, Anion Gap 11, Blood Urea Nitrogen 16, Creatinine 1.22, Estimat Glomerular Filtration Rate 47, BUN/Cr eatinine Ratio 13, Glucose Level 249H, Calcium Level 8.9, Corrected Calcium 8.8, Phosphorus Level 3.8, Magnesium Level 2.0, Total Bilirubin 0.7, Aspartate Amino Transf (AST/SGOT) 13, Alanine Aminotransferase (ALT/SGPT) 15, Alkaline Callie sphatase 116, Total Protein 7.1, Albumin 4.1 08/06/22 05:06: White Blood Count 12.0H, Red Blood Count 4.31, Hemoglobin 11.3L, Hematocrit 36, Mean Corpuscular Volume 84, Mean Corpuscular Hemoglobin 26, Mean Corpuscular Hemoglobin Concent 31L, Red Cell Distribution Width 15.0H, Platelet Count 263, Mean Platelet Volume 11.3, Immature Granulocyte % (Auto) 1, Neutrophils (%) (Auto) 87H, Lymphocytes (%) (Auto) 7L, Monocytes (%) (Auto) 5, Eosinophils (%) (Auto) 0, Basophils (%) (Auto) 0, Neutrophils # (Auto) 10.4H, Lymphocytes # (Auto) 0.9L, Monocytes # (Auto) 0.6, Eosinophils # (Auto) 0.0, Basophils # (Auto) 0.0, Immature Granulocyte # (Auto) 0.1, Sodium Level 135, Potassium Level 3.6, Chloride Level 101, Carbon Dioxide Level 24, Anion Gap 10, Blood Urea Nitrogen 23H, Creatinine 1.32H, Estimat Glomerular Filtration Rate 43, BUN/Creatinine Ratio 17, Glucose Level 242H, Calcium Level 8.6, Magnesium Level 2.7H Microbiology 08/05/22 MRSA Screen - Final, Complete MRSA not isolated Radiology CXR 08/05/22:" IMPRESSION: Cardiomegaly with bilateral infiltrates. Findings could be secondary to inflammation or congestive failure. Assessment/Plan Assessment/Plan (1) Respiratory failure Status: Acute Assessment & Plan: Improved with bipap, etiology pulmonary edema vs COPD exacerbation. 08/06/22 stable on 5 lpm supplemental oxygen, continuing diuresis Qualifiers: Qualified Codes: J96.01 - Acute respiratory failure with hypoxia (2) Pulmonary edema Status: Acute Assessment & Plan: IV lasix x 1 now, echocardiogram ordered. 08/06/22 IV lasix 40 mg BID per Cardiology Qualifiers: Qualified Codes: J81.0 - Acute pulmonary edema (3) Atrial fibrillation with RVR Status: Acute Assessment & Plan: New onset a fib, improved with one dose of cardizem in ER, Cardiology consulted, appreciate recommendations. Echo pending. TSH pending. Enoxaparin treatment dose started. 08/06/22 TSH nml. Changed to amiodarone per Cardiology. (4) Hypertension Status: Chronic Assessment & Plan: Resume home meds Qualifiers: Qualified Codes: I10 - Essential (primary) hypertension (5) COPD (chronic obstructive pulmonary disease) Status: Chronic Assessment & Plan: Per chart review, although patient denies. Received steroids and breathing treatment in ER without much improvement in wheezing, unclear if COPD exacerbation vs CHF and pulmonary edema. Duonebs. 08/06/22 no wheezing (6) Acute kidney insufficiency Status: Acute Assessment & Plan: Suspect secondary to diuresis, which is needed. Monitor closely. (7) Anemia Status: Acute Assessment & Plan: Normal hemoglobin on admit, suspect drop related to blood draws. Monitor closely. (8) shelter resident Status: Chronic Assessment & Plan: Pt unable to clarify why she is an NH resident, states she had a leg fracture a few years ago, but is able to walk now with walker. Per ke[facility] cur[facility] chart review has diagnosis of cognitive dysfunction. Is alert and oriented this morning. (9) DVT prophylaxis Status: Acute Assessment & Plan: Treatment dose enoxaparin AYESHA ROBERTS MD Aug 06, 2022 11:29
[2022-08-06] MEDS: FAMOTIDINE 20 MG (PEPCID) TABLET PO SCH (21:27)
[2022-08-06] MEDS: AtorvaSTATin TABLET 10 MG TABLET PO SCH (21:27)
[2022-08-07] MEDS: RT-ALBUTEROL/IPRATROPIUM 3 ML (DUONEB) VIAL INH SCH ×6 (02:41→22:56)
[2022-08-07 05:26] LABS: BASOPHILS # (AUTO) 0.1 10^3/uL (0.0-0.1); BASOPHILS % (AUTO) 1 % (0-10); EOSINOPHILS # (AUTO) 0.2 10^3/uL (0.0-0.3); EOSINOPHILS % (AUTO) 2 % (0-10); HEMATOCRIT 38 % (35-52); HEMOGLOBIN 11.5 g/dL (11.5-16.0); LYMPHOCYTES # (AUTO) 2.8 10^3/uL (1.0-4.0); LYMPHOCYTES % (AUTO) 26 % (12-44); MEAN CORPUSCULAR HEMOGLOBIN 26 pg (25-34); MEAN CORPUSCULAR HGB CONC 30 g/dL (32-36); MEAN CORPUSCULAR VOLUME 87 fL (80-99); MONOCYTES # (AUTO) 0.9 10^3/uL (0.0-1.0); MONOCYTES % (AUTO) 8 % (0-12); NEUTROPHILS # (AUTO) 6.9 10^3/uL (1.8-7.8); NEUTROPHILS % (AUTO) 63 % (42-75); PLATELET COUNT 234 10^3/uL (130-400); WHITE BLOOD COUNT 10.8 10^3/uL (4.3-11.0)
[2022-08-07 05:43] LABS: POTASSIUM 4.1 MMOL/L (3.6-5.0)
[2022-08-07 05:44] LABS: CALCIUM 8.6 MG/DL (8.5-10.1)
[2022-08-07 05:48] LABS: CREATININE SERUM 1.42 MG/DL (0.60-1.30)
[2022-08-07] MEDS: MAGNESIUM 1 GM/100 ML IVPB 100 ML IV SCH (05:51)
[2022-08-07] MEDS: CATHETER FLUSH 10 ML SYR IVP SCH ×3 (05:51→22:56)
[2022-08-07] MEDS: POTASSIUM CL 10MEQ/50ML IVPB 50 ML IV SCH (05:51)
[2022-08-07] MEDS: KCL 20 MEQ TAB (K-DUR) PO SCH (05:51)
[2022-08-07] MEDS: FUROSEMIDE 40 MG/4 ML INJ (LASIX) IVP SCH (06:45)
[2022-08-07] MEDS: LOSARTAN 25 MG (COZAAR) TAB PO SCH (08:58)
[2022-08-07] MEDS: ENOXAPARIN 80 MG/0.8 ML (LOVENOX) SYR SQ SCH ×2 (08:58→21:45)
[2022-08-07] MEDS: NS IV 1000 ML 1,000 ML IV SCH ×2 (09:00→21:00)
[2022-08-07] MEDS ORDERED: NS IV 1000 ML 0 ML ONE (09:06)
[2022-08-07] MEDS ORDERED: NS IV 1000 ML 1,000 ML ONE (09:34)
[2022-08-07] MEDS ORDERED: LIDOCAINE 1% INJ 30 ML (XYLOCAINE) VIAL ONE (09:34)
[2022-08-07] MEDS ORDERED: HEParin (CATH LAB) 2,000 ML IV ONE (09:34)
--- NOTE | 2022-08-07 09:36 | Progress Note ---
Objective Exam Last Set of Vital Signs Vital Signs Date Time Temp Pulse Resp B/P (MAP) Pulse Ox O2 Delivery O2 Flow Rate FiO2 08/07/22 09:00 75 17 131/104 (113) 92 High Flow N/C 2.00 08/07/22 08:00 36.0 08/05/22 23:59 35 Capillary Refill : Less Than 3 Seconds I&O Intake and Output 08/07/22 00:00 Intake Total 1400 ml Output Total 1350 ml Balance 50 ml Intake Oral 1300 ml IV Total 100 ml Output Urine Total 1350 ml Results/Procedures Lab Laboratory Tests 08/07/22 05:10: White Blood Count 10.8, Red Blood Count 4.39, Hemoglobin 11.5, Hematocrit 38, Mean Corpuscular Volume 87, Mean Corpuscular Hemoglobin 26, Mean Corpuscular Hemoglobin Concent 30L, Red Cell Distribution Width 15.8H, Platelet Count 234, Mean Platelet Volume 11.0, Immature Granulocyte % (Auto) 0, Neutrophils (%) (Auto) 63, Lymphocytes (%) (Auto) 26, Monocytes (%) (Auto) 8, Eosinophils (%) (Auto) 2, Basophils (%) (Auto) 1, Neutrophils # (Auto) 6.9, Lymphocytes # (Auto) 2.8, Monocytes # (Auto) 0.9, Eosinophils # (Auto) 0.2, Basophils # (Auto) 0.1, Immature Granulocyte # (Auto) 0.0, Sodium Level 138, Potassium Level 4.1, Chloride Level 103, Carbon Dioxide Level 23, Anion Gap 12, Blood Urea Nitrogen 31H, Creatinine 1.42H, Estimat Glomerular Filtration Rate 39, BUN/Creatinine Ratio 22, Glucose Level 147H, Calcium Level 8.6 Microbiology 08/05/22 MRSA Screen - Final, Complete MRSA not isolated Radiology CXR 08/05/22:" IMPRESSION: Cardiomegaly with bilateral infiltrates. Findings could be secondary to inflammation or congestive failure. Assessment/Plan Assessment/Plan (1) Respiratory failure Status: Acute Assessment & Plan: Improved with bipap, etiology pulmonary edema vs COPD exacerbation. 08/06/22 stable on 5 lpm supplemental oxygen, continuing diuresis Qualifiers: Qualified Codes: J96.01 - Acute respiratory failure with hypoxia (2) Pulmonary edema Status: Acute Assessment & Plan: IV lasix x 1 now, echocardiogram ordered. 08/06/22 IV lasix 40 mg BID per Cardiology Qualifiers: Qualified Codes: J81.0 - Acute pulmonary edema (3) Atrial fibrillation with RVR Status: Acute Assessment & Plan: New onset a fib, improved with one dose of cardizem in ER, Cardiology consulted, appreciate recommendations. Echo pending. TSH pending. En oxaparin treatment dose started. 08/06/22 TSH nml. Changed to amiodarone per Cardiology. (4) Hypertension Status: Chronic Assessment & Plan: Resume home meds Qualifiers: Qualified Codes: I10 - Essential (primary) hypertension (5) COPD (chronic obstructive pulmonary disease) Status: Chronic Assessment & Plan: Per chart review, although patient denies. Received steroids and breathing treatment in ER without much improvement in wheezing, unclear if COPD exacerbation vs CHF and pulmonary edema. Duonebs. 08/06/22 no wheezing (6) Acute kidney insufficiency Status: Acute Assessment & Plan: Suspect secondary to diuresis, which is needed. Monitor closely. (7) Anemia Status: Acute Assessment & Plan: Normal hemoglobin on admit, suspect drop related to blood draws. Monitor closely. (8) group home resident Status: Chronic Assessment & Plan: Pt unable to clarify why she is an NH resident, states she had a leg fracture a few years ago, but is able to walk now with walker. Per clinic chart review has diagnosis of cognitive dysfunction. Is alert and oriented this morning. (9) DVT prophylaxis Status: Acute Assessment & Plan: Treatment dose enoxaparin AYESHA ROBERTS MD Aug 07, 2022 09:36
[2022-08-07] MEDS ORDERED: NS IV 1000 ML 1,000 ML IV SCH (10:00)
[2022-08-07] MEDS ORDERED: VERAPAMIL 5 MG/2 ML (CALAN) VIAL IV ONE (10:10)
[2022-08-07] MEDS ORDERED: fentaNYL INJ 100 MCG/2 ML AMP ONE ×3 (10:10→17:15)
[2022-08-07] MEDS ORDERED: HEParin 1000 UNIT/ML (10ML VIAL) FOR BOLUS ONE (10:11)
[2022-08-07] MEDS ORDERED: MIDAZOLAM 5 MG/5 ML (VERSED) VIAL ONE (10:11)
[2022-08-07] MEDS ORDERED: NITRO DRIP 25000 MCG/D5W 0 ML IV ONE (10:12)
--- NOTE | 2022-08-07 10:32 | Cardiac Procedure Note-CS/ASA ---
Pre-Procedure Note Pre-Op Procedure Note Date of Available H&P: Aug 07, 2022 Date H&P Reviewed: Aug 07, 2022 Time H&P Reviewed: 10:31 History & Physical: H&P Reviewed, Patient Examed, No changes noted Pre-Operative Diagnosis: CHF Conscious Sedation Pre-Proced Time 10:32 ASA Score 3 For ASA 3 and 4: Consider anesthesia and medical clearance. Also, for patients with a history of failed moderate sedation consider anesthesia. Airway Lungs Heart ASA score ASA 1: a normal healthy patient ASA 2: a patient with a mild systemic disease (mid diabetes, controlled hypertension, obesity ASA 3: a patient with a severe systemic disease that limits activity (angina, COPD, prior Myocardial infarction) ASA 4: a patient with an incapacitating disease that is a constant threat to life (CHF, renal failure) ASA 5: a moribund patient not expected to survive 24 hrs. (ruptured aneurysm) ASA 6: a declared brain- patient whose organs are being harvested. For emergent operations, add the letter E after the classification Mallampati Classification Grade 3 Sedation Plan Analgesia, Amnesia, Plan communicated to team members, Discussed options with patient/fam, Discussed risks with patient/fam The patient is an appropriate candidate to undergo the planned procedure, sedation, and anesthesia. The patient immediately re-assessed prior to indication. BEAN CARDONA MD Aug 07, 2022 10:32
--- NOTE | 2022-08-07 10:34 | Cardiology Progress Note ---
Subjective Date Seen by Provider: Aug 07, 2022 Time Seen by Provider: 10:32 Subjective/Events-last exam Patient was seen at bedside, laying down comfortably, feeling better No further arrhythmia was noted since started on amiodarone Review of Systems General: No Chills, No Night Sweats; Fatigue; No Malaise, No Appetite, No Other HEENT: No Head Aches, No Visual Changes, No Eye Pain, No Ear Pain, No Dysphasia, No Sinus Congestion, No Post Nasal Drip, No Sore Throat, No Other Pulmonary: Dyspnea; No Cough, No Pleuritic Chest Pain, No Other Cardiovascular: No: Chest Pain, Palpitations, Orthopnea, Paroxysmal Noc. Dyspnea, Edema, Lt Headedness, Other Objective-Cardiology Exam Last Set of Vital Signs Vital Signs 08/05/22 08/07/22 08/07/22 23:59 09:00 10:00 Pulse 72 Resp 18 B/P (MAP) 131/104 (113) Pulse Ox 95 O2 Delivery High Flow N/C O2 Flow Rate 2.00 FiO2 35 I&O Intake and Output 08/07/22 00:00 Intake Total 1400 ml Output Total 1350 ml Balance 50 ml Intake Oral 1300 ml IV Total 100 ml Output Urine Total 1350 ml General: Alert, Oriented X3, Cooperative, No Acute Distress HEENT: Atraumatic, PERRLA Neck: Supple, No JVD, No Thyromegaly Lungs: Clear to Auscultation Heart: Normal S1, Normal S2, Other (irregularly irregular) Abdomen: Normal Bowel Sounds, Soft, No Tenderness, No Hepatosplenomegaly, No Masses Extremities: No Edema Skin: No Rashes, No Breakdown, No Significant Lesion Neuro: Normal Gait, Normal Speech, Strength at 5/5 X4 Ext, Normal Tone, Sensation Intact Psych/Mental Status: Mood NL Results Lab Laboratory Tests 08/07/22 05:10 A/P-Cardiology Admission Diagnosis Acute respiratory failure Multifocal atrial tachycardia Pulmonary edema Hypertension Assessment/Plan Status post acute respiratory failure, responded well to diuretics. Feeling better. Questionable coronary artery disease, has severe cardiomyopathy Planning for cardiac catheterization, possible PTCA Multiple episodes of sustained ventricular tachycardia, severe cardiomyopathy. Will evaluate for LifeVest, Responded well to amiodarone loading dose. Congestive heart failure, acute left ventricular systolic dysfunction, dilated cardiomyopathy NYHA class III-IV Planning to proceed with cardiac catheterization possible PTCA Switching lisinopril to losartan, Switching Lopressor IV to Coreg orally Arranging for LifeVest and monitor closely Hypertension, maintained on lisinopril as an outpatient I am changing blood pressure medication as described above Patient is a long term resident BEAN CARDONA MD Aug 07, 2022 10:34
[2022-08-07] MEDS ORDERED: PATIENT MAY USE OWN MEDS, ALL PO SCH (11:00)
[2022-08-07] MEDS ORDERED: DexMEDEtomidine 250 ML DRIP 250 ML IV SCH (11:00)
--- NOTE | 2022-08-07 11:01 | Cardiac Cath Report ---
Cardiac Cath Report Physician (s)/Facilities Flight Check Pilot (s) Physician BEAN CARDONA MD Pre-Procedure Diagnosis Pre-Procedure Diagnosis: CHF Post-Procedure Note Procedure Start Date: Aug 07, 2022 Name of Procedure: Left heart catheterization Findings/Procedure Note PROCEDURE NOTE: 71-year-old lady admitted with severe cardiomyopathy, having multiple episodes of nonsustained ventricular tachycardia, decided to proceed with cardiac catheterization to evaluate for underlying coronary artery disease. After explaining the procedure to the patient, all pros and cons were explained, all questions were answered. The patient signed the consent and then she was placed on the cardiac catheterization laboratory. Groin was prepped SL fashion local anesthesia was used. Sheath placed in the right femoral artery. Sarmad right and left catheter were used to access the coronary system. Sarmad right was used to access the left ventricular cavity. Left ventriculogram was not done, pressure was measured At the end of the procedure the sheath was removed. Closure device was deployed FINDINGS: Hemodynamics LV 108/29, end-diastolic pressure of 29 Aorta 112/65 mean of 84 ANATOMY: Left Main is free of obstructive disease Left Anterior Descending has mild disease nonobstructive disease Left Circumflex is dominant artery with mild disease nonobstructive disease Right Coronary Artery is nondominant artery with mild disease nonobstructive disease LV Gram was not done, pressure was measured CONCLUSION: 1. Mild coronary artery disease nonobstructive disease 2. Elevated left ventricular end-diastolic pressure DISCUSSION AND RECOMMENDATION: Patient has severe cardiomyopathy, nonischemic in nature. Dilated cardiomyopat hy. Anesthesia Type: Conscious Sedation Estimated blood loss (mL): 10 ml Contrast Amount: 27 ml Total Radiation Dose: 399 mGy Post-Procedure Diagnosis Post-operative diagnosis: Congestive heart failure, acute left ventricular systolic dysfunction, nonischemic cardiomyopathy Coronary artery disease Sustained ventricular tachycardia Multifocal atrial tachycardia BEAN CARDONA MD Aug 07, 2022 11:01
[2022-08-07] MEDS ORDERED: meTOprolol 5 MG/5 ML (LOPRESSOR) VIAL ONE (11:16)
--- NOTE | 2022-08-07 11:17 | Tele-ICU Progress Note ---
Progress Note Patient with respiratory failure, failed NIPPV unresponsive , , resp acidosis Elective intubation done without complications Orders for sedation and vent settings ( TV 8 cc/kg IBW) placed in EMRcxr , abg and cxr pending stop narcan gtt , prn precedex ( additional CCT 22 min ) Focused Exam Height, Weight, BMI Height: '" Weight: lbs. oz. kg; 39.74 BMI Method: DESMOND CUEVAS MD Aug 07, 2022 11:17
--- NOTE | 2022-08-07 11:18 | Physical Therapy Progress Note ---
Therapy Progress Note Patient just intubated and sedated. PT will initiate treatment when patient is medically stable and able to actively participate with skilled therapy. ZAC REYEZ PT Aug 07, 2022 11:18
--- NOTE | 2022-08-07 11:36 | Occ Therapy Progress Note ---
Therapy Progress Note OT orders received and chart reviewed. Pt is currently intubated/sedated. OT will continue to monitor pt progress and initiate tx when pt is more medically stable and able to actively participate in skilled therapy. ADRIANNA SHEA OT Aug 07, 2022 11:36
--- NOTE | 2022-08-07 12:03 | Tele-ICU Progress Note ---
Subjective Date Seen by a Provider: Aug 07, 2022 Time Seen by a Provider: 12:03 Subjective/Events-last exam (Tele-ICU Physician , Progress Note ) Available chart/ vitals / labs / Images reviewed Video assessment done using teleICU camera, rest of exam as per RN Discussed with RN Events overnight : Afebrile hemodynamically stable Respiratory - 5l I/O = Drips: Pressors- no Consultants: Hospital course: (08/05) 71F Admitted from ER - for CHF, rapid afib--SR upon arrival to ICU 09/06 - 5 L , A/P Acute reso failure due to pulm edema - placed on BIPAP in ER - resoleved -with diuresis on 5 L nC now A fib / RVR - new dx , TSH wnl - amio gtt as per cards - AC with lovenox - ECHO 08/05 - EF 30 % - card consulted Acute left ventricular systolic dysfunction, dilated cardiomyopathy -cardiac catheterization 08/07 - life vest as per cards note Dyspnea/ hypoxia on presentation - presented with wheezing, was tx with Solumedrol and Nebs in ER - can be related to pulm edema -->> re -eval needs for br-dilators HELGA - ? result of diuresis - as per cards - monitor after contrast Leukocytosis - ? reactive - UA WNL Lines : periph , (Central Line Necessity Reviewed) Christianson: 08/05 OG: Nutrition: po Analgesia: Anxiety/ delirium VTE Prophylaxis: lovenox full dose Stress Ulcer Prophylaxis: na h2bl Plans in collaboration with bedside consultants and IM MDs. Discussed with RN to reach out if any questions or concerns A total of 20 minutes of critical care time was devoted to this patient today, required to treat and/or prevent further deterioration of critical care condition ( as above ) . Sepsis Event Evaluation Height, Weight, BMI Height: '" Weight: lbs. oz. kg; 39.74 BMI Method: Exam Exam Patient acknowledged, consented, and participated in this virtual visit which was conducted using real time audio/video Vital Signs Date Time Temp Pulse Resp B/P (MAP) Pulse Ox O2 Delivery O2 Flow Rate FiO2 08/07/22 10:00 72 18 95 High Flow N/C 2.00 08/07/22 09:00 75 17 131/104 (113) 92 High Flow N/C 2.00 08/07/22 08:00 36.0 08/07/22 08:00 80 8 148/95 (112) 95 High Flow N/C 2.00 08/07/22 07:00 82 08/07/22 07:00 75 15 132/95 (107) 92 High Flow N/C 2.00 08/07/22 06:00 64 17 129/104 (112) 95 High Flow N/C 2.00 08/07/22 05:00 65 14 134/71 (92) 92 High Flow N/C 2.00 08/07/22 04:00 64 15 99/64 (76) 97 High Flow N/C 2.00 08/07/22 04:00 95 High Flow N/C 2.00 08/07/22 03:00 59 14 123/81 (95) 95 High Flow N/C 2.00 08/07/22 02:41 91 High Flow N/C 3.00 08/07/22 02:00 61 14 104/52 (69) 94 High Flow N/C 2.00 08/07/22 01:00 68 17 90/77 (81) 92 High Flow N/C 2.00 08/07/22 00:55 72 08/07/22 00:09 36.1 High Flow N/C 2.00 08/07/22 00:00 68 15 109/71 (84) 92 High Flow N/C 2.00 08/06/22 23:59 94 High Flow N/C 2.00 08/06/22 23:00 70 34 102/69 (80) 91 High Flow N/C 2.00 08/06/22 22:00 68 22 112/73 (86) 94 High Flow N/C 2.00 08/06/22 21:49 91 High Flow N/C 3.00 08/06/22 21:00 69 16 126/86 (99) 94 High Flow N/C 2.00 08/06/22 20:00 69 11 103/78 (86) 94 High Flow N/C 2.00 08/06/22 20:00 93 High Flow N/C 2.00 08/06/22 19:39 36.0 68 22 122/71 (88) 94 High Flow N/C 2.00 08/06/22 19:00 78 08/06/22 19:00 71 19 123/80 (94) 93 High Flow N/C 2.00 08/06/22 18:32 98 High Flow N/C 3.00 08/06/22 18:03 36.7 08/06/22 18:00 71 21 111/87 (95) 94 High Flow N/C 4.00 08/06/22 17:03 36.7 08/06/22 17:00 65 14 106/74 (85) 94 High Flow N/C 4.00 08/06/22 16:00 68 12 94/65 (75) 94 High Flow N/C 4.00 08/06/22 16:00 96 High Flow N/C 5.00 08/06/22 15:10 97 High Flow N/C 3.00 08/06/22 15:00 71 14 93/70 (78) 94 High Flow N/C 4.00 08/06/22 14:00 75 26 120/68 (85) 94 High Flow N/C 4.00 08/06/22 13:00 69 08/06/22 13:00 62 21 99/74 (82) 97 High Flow N/C 4.00 I & O 08/07/22 07:00 Intake Total 1150 ml Output Total 1850 ml Balance -700 ml Height & Weight Height: '" Weight: lbs. oz. kg; 39.74 BMI Method: General Appearance: No Apparent Distress, Anxious, Moderate Distress, Obese HEENT: Other Neck: Full Range of Motion, Normal Inspection, Non Tender, Supple, Carotid Bruit Respiratory: Decreased Breath Sounds, Stridor Cardiovascular: Irregularly Irregular, Other Capillary Refill: Less Than 3 Seconds Peripheral Pulses: 2+ Dorsalis Pedis (R), 2+ Left Dors-Pedis (L) Gastrointestinal: normal bowel sounds, non tender, soft Extremity: Normal Capillary Refill, Normal Inspection, Normal Range of Motion, Non Tender, No Calf Tenderness, No Pedal Edema Neurologic/Psychiatric: Alert, Oriented x3 Skin: Normal Color, Warm/Dry Lymphatic: No Adenopathy Results Lab Laboratory Tests 08/05/22 14:30 08/06/22 05:06 08/07/22 05:10 Assessment/Plan Assessment/Plan 1 DESMOND CUEVAS MD Aug 07, 2022 12:03
--- NOTE | 2022-08-07 12:49 | Progress Note ---
Subjective Subjective/Events-last exam Pt seen at about noon, recently returned from cath, states she is sleepy, denies chest pain or shortness of breath. Objective Exam Last Set of Vital Signs Vital Signs Date Time Temp Pulse Resp B/P (MAP) Pulse Ox O2 Delivery O2 Flow Rate FiO2 08/07/22 11:45 62 13 117/69 (85) 91 High Flow N/C 2.00 08/07/22 08:00 36.0 08/05/22 23:59 35 Capillary Refill : Less Than 3 Seconds I&O Intake and Output 08/07/22 00:00 Intake Total 1400 ml Output Total 1350 ml Balance 50 ml Intake Oral 1300 ml IV Total 100 ml Output Urine Total 1350 ml General: Alert Lungs: Other (expiratory wheezing) Heart: Regular Rate Abdomen: Normal Bowel Sounds, Soft Extremities: No Edema Psych/Mental Status: Mood NL Results/Procedures Lab Laboratory Tests 08/07/22 05:10: White Blood Count 10.8, Red Blood Count 4.39, Hemoglobin 11.5, Hematocrit 38, Mean Corpuscular Volume 87, Mean Corpuscular Hemoglobin 26, Mean Corpuscular Hemoglobin Concent 30L, Red Cell Distribution Width 15.8H, Platelet Count 234, Mean Platelet Volume 11.0, Immature Granulocyte % (Auto) 0, Neutrophils (%) (Auto) 63, Lymphocytes (%) (Auto) 26, Monocytes (%) (Auto) 8, Eosinophils (%) (Auto) 2, Basophils (%) (Auto) 1, Neutrophils # (Auto) 6.9, Lymphocytes # (Auto) 2.8, Monocytes # (Auto) 0.9, Eosinophils # (Auto) 0.2, Basophils # (Auto) 0.1, Immature Granulocyte # (Auto) 0.0, Sodium Level 138, Potassium Level 4.1, Chloride Level 103, Carbon Dioxide Level 23, Anion Gap 12, Blood Urea Nitrogen 31H, Creatinine 1.42H, Estimat Glomerular Filtration Rate 39, BUN/Creatinine Ratio 22, Glucose Level 147H, Calcium Level 8.6 Microbiology 08/05/22 MRSA Screen - Final, Complete MRSA not isolated Radiology CXR 08/05/22:" IMPRESSION: Cardiomegaly with bilateral infiltrates. Findings could be secondary to inflammation or congestive failure. Assessment/Plan Assessment/Plan (1) Respiratory failure Status: Acute Assessment & Plan: Improved with bipap, etiology pulmonary edema vs COPD exacerbation. 08/06/22 stable on 5 lpm supplemental oxygen, continuing diuresis 08/07/22 continues to use supplemental oxygen, but down to 2lpm this am, will decrease furosemide dosing given worsening creatinine. Qualifiers: Qualified Codes: J96.01 - Acute respiratory failure with hypoxia (2) Pulmonary edema Status: Acute Assessment & Plan: IV lasix x 1 now, echocardiogram ordered. 08/06/22 IV lasix 40 mg BID per Cardiology 08/07/22 Decrease lasix to 40 mg daily due to increasing creatinine and cath today. Qualifiers: Qualified Codes: J81.0 - Acute pulmonary edema (3) Atrial fibrillation with RVR Status: Acute Assessment & Plan: New onset a fib, improved with one dose of cardizem in ER, Cardiology consulted, appreciate recommendations. Echo pending. TSH pending. Enoxaparin treatment dose started. 08/06/22 TSH nml. Changed to amiodarone per Cardiology. (4) Hypertension Status: Chronic Assessment & Plan: Resume home meds Qualifiers: Qualified Codes: I10 - Essential (primary) hypertension (5) Acute systolic CHF (congestive heart failure) Status: Acute Assessment & Plan: Echo after admit with EF 30%, appreciate Cardiology recommendations. Cath 08/07, awaiting results. (6) COPD (chronic obstructive pulmonary disease) Status: Chronic Assessment & Plan: Per chart review, although patient denies. Received steroids and breathing treatment in ER without much improvement in wheezing, unclear if COPD exacerbation vs CHF and pulmonary edema. Duonebs. 08/06/22 no wheezing (7) Acute kidney insufficiency Status: Acute Assessment & Plan: Suspect secondary to diuresis, which is needed. Monitor closely. (8) Anemia Status: Acute Assessment & Plan: Normal hemoglobin on admit, suspect drop related to blood draws. Monitor closely. (9) senior care resident Status: Chronic Assessment & Plan: Pt unable to clarify why she is an NH resident, states she had a leg fracture a few years ago, but is able to walk now with walker. Per clinic chart review has diagnosis of cognitive dysfunction. Is alert and oriented this morning. (10) DVT prophylaxis Status: Acute Assessment & Plan: Treatment dose enoxaparin AYESHA ROBERTS MD Aug 07, 2022 12:49
--- NOTE | 2022-08-07 15:43 | Physician Query Clarification ---
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 Please document response in the Progress Notes or Discharge Summary. 1. Acute Systolic CHF, Present On Admission? 2. Other, with explanation of clinical findings 3. Clinically undetermined, no explanation for clinical findings In responding to this query, please exercise your independent professional judgment. The purpose of this communication is to more accurately reflect the complexity of your patients condition. The fact that a question is asked does not imply that any particular answer is desired or expected. Thank you for timely response to this clarification. Yessenia Sanz MSN, RN Clinical Cpr Instructor PHYSICIAN RESPONSE: Based on the clinical findings in the record, please respond to the query above on this document as an addendum. Physician Response: Physician Response Please inquire with dr recio since I just took over at noon If you have questions please contact: Syrup Maker Cook: Ext: Thank you for your time and cooperation. Clinical Cpr Instructor/Syrup Maker Cook This is a permanent part of the medical re cord YESSENIA SANZ Aug 07, 2022 15:43 ADRIANA TOWNSEND DO Aug 07, 2022 20:54
[2022-08-07] MEDS ORDERED: fentaNYL INJ 100 MCG/2 ML AMP IVP ONE (17:30)
[2022-08-07] MEDS ORDERED: NS IV 1000 ML 1,000 ML IV ONE (20:15)
[2022-08-07] MEDS ORDERED: NS IV 500 ML 500 ML IV SCH (20:15)
[2022-08-07] MEDS: AMIODARONE 200 MG (CORDARONE) TAB PO SCH ×2 (21:42→22:49)
[2022-08-07] MEDS ORDERED: AMIODARONE FOR BOLUS 150 MG in NS (IVPB) 100 ML IV ONE (21:45)
[2022-08-07] MEDS ORDERED: AMIODARONE (Pyxis Kit Only) BOLUS 150 MG/3 ML IV ONE (21:49)
[2022-08-07] MEDS ORDERED: D5W 100 ML IVPB 100 ML IV ONE (21:49)
[2022-08-07 22:08] VITALS: BP 119/75
[2022-08-07 22:25] VITALS: BP 141/92
[2022-08-07] MEDS: FAMOTIDINE 20 MG (PEPCID) TABLET PO SCH (22:48)
[2022-08-07] MEDS: AtorvaSTATin TABLET 10 MG TABLET PO SCH (22:49)
[2022-08-08 00:30] VITALS: BP 130/85
[2022-08-08] MEDS: RT-ALBUTEROL/IPRATROPIUM 3 ML (DUONEB) VIAL INH SCH ×6 (02:23→22:40)
[2022-08-08 03:03] LABS: BASOPHILS % (AUTO) 0 % (0-10); EOSINOPHILS # (AUTO) 0.1 10^3/uL (0.0-0.3); EOSINOPHILS % (AUTO) 1 % (0-10); HEMATOCRIT 36 % (35-52); HEMOGLOBIN 11.3 g/dL (11.5-16.0); LYMPHOCYTES # (AUTO) 1.3 10^3/uL (1.0-4.0); LYMPHOCYTES % (AUTO) 14 % (12-44); MEAN CORPUSCULAR HEMOGLOBIN 27 pg (25-34); MEAN CORPUSCULAR HGB CONC 32 g/dL (32-36); MEAN CORPUSCULAR VOLUME 87 fL (80-99); MEAN PLATELET VOLUME 11.5 fL (9.0-12.2); MONOCYTES # (AUTO) 0.8 10^3/uL (0.0-1.0); MONOCYTES % (AUTO) 8 % (0-12); NEUTROPHILS # (AUTO) 7.2 10^3/uL (1.8-7.8); NEUTROPHILS % (AUTO) 76 % (42-75); PLATELET COUNT 234 10^3/uL (130-400); WHITE BLOOD COUNT 9.4 10^3/uL (4.3-11.0)
[2022-08-08 03:18] LABS: CALCIUM 7.9 MG/DL (8.5-10.1); POTASSIUM 4.2 MMOL/L (3.6-5.0)
[2022-08-08] MEDS: KCL 20 MEQ TAB (K-DUR) PO SCH (04:52)
[2022-08-08] MEDS: POTASSIUM CL 10MEQ/50ML IVPB 50 ML IV SCH (04:52)
[2022-08-08] MEDS: MAGNESIUM 1 GM/100 ML IVPB 100 ML IV SCH (06:14)
[2022-08-08] MEDS: CATHETER FLUSH 10 ML SYR IVP SCH ×3 (06:14→20:44)
--- NOTE | 2022-08-08 06:16 | Progress Note - Hospitalist ---
Subjective HPI/CC On Admission Date Seen by Provider: Aug 08, 2022 Time Seen by Provider: 08:30 Subjective/Events-last exam Much improved status Appears very debilitated Life vest in place O2 maintained Review of Systems General: Fatigue, Malaise Objective Exam Vital Signs Vital Signs Date Time Temp Pulse Resp B/P (MAP) Pulse Ox O2 Delivery O2 Flow Rate FiO2 08/08/22 19:45 37.1 08/08/22 19:17 High Flow N/C 10.00 08/08/22 18:46 93 08/08/22 16:00 61 19 110/68 (82) 08/05/22 23:59 35 Capillary Refill : Less Than 3 Seconds General Appearance: No Apparent Distress, WD/WN, Chronically ill Respiratory: Lungs Clear, Normal Breath Sounds, Decreased Breath Sounds Cardiovascular: Irregularly Irregular, Tachycardia Neurologic/Psychiatric: Alert, Oriented x3, No Motor/Sensory Deficits, Normal Mood/Affect Results/Procedures Lab Laboratory Tests 08/08/22 02:56 Patient resulted labs reviewed. Assessment/Plan Assessment and Plan Assess & Plan/Chief Complaint (1) Respiratory failure Status: Acute Assessment & Plan: Improved with bipap, etiology pulmonary edema vs COPD exacerbation. 08/06/22 stable on 5 lpm supplemental oxygen, continuing diuresis 08/07/22 continues to use supplemental oxygen, but down to 2lpm this am, will decrease furosemide dosing given worsening creatinine. Qualifiers: Qualified Codes: J96.01 - Acute respiratory failure with hypoxia (2) Pulmonary edema Status: Acute Assessment & Plan: IV lasix x 1 now, echocardiogram ordered. 08/06/22 IV lasix 40 mg BID per Cardiology 08/07/22 Decrease lasix to 40 mg daily due to increasing creatinine and cath today. Qualifiers: Qualified Codes: J81.0 - Acute pulmonary edema (3) Atrial fibrillation with RVR Status: Acute Assessment & Plan: New onset a fib, improved with one dose of cardizem in ER, Cardiology consulted, appreciate recommendations. Echo pending. TSH pending. Enoxaparin treatment dose started. 08/06/22 TSH nml. Changed to amiodarone per Cardiology. (4) Hypertension Status: Chronic Assessment & Plan: Resume home meds Qualifiers: Qualified Codes: I10 - Essential (primary) hypertension (5) Acute systolic CHF (congestive heart failure) Status: Acute Assessment & Plan: Echo after admit with EF 30%, appreciate Cardiology recommendations. Cath 08/07, awaiting results. (6) COPD (chronic obstructive pulmonary disease) Status: Chronic Assessment & Plan: Per chart review, although patient denies. Received steroids and breathing treatment in ER without much improvement in wheezing, unclear if C OPD exacerbation vs CHF and pulmonary edema. Amee. 08/06/22 no wheezing (7) Acute kidney insufficiency Status: Acute Assessment & Plan: Suspect secondary to diuresis, which is needed. Monitor closely. (8) Anemia Status: Acute Assessment & Plan: Normal hemoglobin on admit, suspect drop related to blood draws. Monitor closely. (9) long term resident Status: Chronic Assessment & Plan: Pt unable to clarify why she is an NH resident, states she had a leg fracture a few years ago, but is able to walk now with walker. Per clinic chart review has diagnosis of cognitive dysfunction. Is alert and or iented this morning. (10) DVT prophylaxis Status: Acute Assessment & Plan: Treatment dose enoxaparin ADRIANA TOWNSEND DO Aug 08, 2022 06:16
[2022-08-08] MEDS: NS IV 1000 ML 1,000 ML IV SCH (06:41)
[2022-08-08] MEDS: FUROSEMIDE 40 MG/4 ML INJ (LASIX) IVP SCH (08:18)
[2022-08-08] MEDS: AMIODARONE 200 MG (CORDARONE) TAB PO SCH ×2 (08:19→20:43)
[2022-08-08] MEDS: LOSARTAN 25 MG (COZAAR) TAB PO SCH (08:51)
[2022-08-08] MEDS: ENOXAPARIN 80 MG/0.8 ML (LOVENOX) SYR SQ SCH ×2 (08:51→20:44)
[2022-08-08] MEDS ORDERED: PANTOPRAZOLE 40 MG (PROTONIX) VIAL IV SCH (09:00)
--- NOTE | 2022-08-08 09:02 | Cardiology Progress Note ---
Subjective Date Seen by Provider: Aug 08, 2022 Time Seen by Provider: 08:59 Subjective/Events-last exam Patient was seen at bedside, laying down comfortably, feeling better. No new complaint. had a bleed last night from her groin, manual pressure applied then FemoStop applied. Review of Systems General: No Chills, No Night Sweats; Fatigue, Malaise; No Appetite, No Other HEENT: No Head Aches, No Visual Changes, No Eye Pain, No Ear Pain, No Dysphasia, No Sinus Congestion, No Post Nasal Drip, No Sore Throat, No Other Pulmonary: Dyspnea; No Cough, No Pleuritic Chest Pain, No Other Cardiovascular: No: Chest Pain, Palpitations, Orthopnea, Paroxysmal Noc. Dyspnea, Edema, Lt Headedness, Other Objective-Cardiology Exam Last Set of Vital Signs Vital Signs 08/05/22 08/08/22 08/08/22 23:59 07:55 08:00 Temp 36.0 Pulse 131 Resp 15 B/P (MAP) 119/96 (104) Pulse Ox 94 O2 Delivery High Flow N/C O2 Flow Rate 11.00 FiO2 35 I&O Intake and Output 08/08/22 00:00 Intake Total 1459 ml Output Total 3925 ml Balance -2466 ml Intake Oral 200 ml IV Total 1259 ml Output Urine Total 3925 ml General: Alert, Oriented X3, Cooperative HEENT: Atraumatic, PERRLA Neck: Supple, No JVD, No Thyromegaly Lungs: Other (expiratory wheezing) Heart: Regular Rate Abdomen: Normal Bowel Sounds, Soft Extremities: No Clubbing, No Cyanosis, Other (Mild edema) Skin: No Rashes, No Breakdown, No Significant Lesion Neuro: Normal Gait, Normal Speech, Strength at 5/5 X4 Ext, Normal Tone, Sensation Intact Psych/Mental Status: Mood NL Results Lab Laboratory Tests 08/08/22 02:56 A/P-Cardiology Admission Diagnosis Acute respiratory failure Multifocal atrial tachycardia Pulmonary edema Hypertension Assessment/Plan Status post acute respiratory failure, responded well to diuretics. Feeling better. Coronary artery disease, cardiac catheterization carried out on August 07, 2022 showing mild disease nonobstructive disease Status post right groin bleed, there are bruising on the groin. No significant hematoma was noted. Received 1 unit of packed RBC, H&H stable Was hypotensive probably secondary to vagal response. Blood pressure is stable at this time Paroxysmal atrial fibrillation, in and out of atrial fibrillation, on amiodarone I will add Cardizem and monitor tolerance and response Multiple episodes of sustained ventricular tachycardia, severe cardiomyopathy. Will evaluate for LifeVest, Responded well to amiodarone loading dose. Congestive heart failure, acute left ventricular systolic dysfunction, dilated nonischemic cardiomyopathy NYHA class III-IV Tolerating losartan and Coreg. Awaiting LifeVest Hypertension, maintained on lisinopril as an outpatient Currently on losartan and Lopressor and Cardizem. [facility] is a [facility] resident BEAN CARDONA MD Aug 08, 2022 09:02
--- NOTE | 2022-08-08 09:19 | Tele-ICU Progress Note ---
Subjective Date Seen by a Provider: Aug 08, 2022 Time Seen by a Provider: 09:16 Subjective/Events-last exam Tele-ICU Physician , Progress Note ) Available chart/ vitals / labs / Images reviewed Video assessment done using teleICU camera, rest of exam as per RN Discussed with RN Events overnight : Afebrile hemodynamically stable Respiratory - I/O = Drips: Pressors- no Consultants: Hospital course:, A/P CVS/HTN Rhythem Echo Respiratory System. GI Kidneys. . HEME INFORMATION SYSTEMS OPERATOR/MENTAL STATUS - Lines : periph , (Central Line Necessity Reviewed) Christianson: OG: Nutrition: Analgesia: Anxiety/ delirium VTE Prophylaxis: l Stress Ulcer Prophylaxis: Plans in collaboration with bedside consultants and IM MDs. Discussed with RN to reach out if any questions or concerns Sepsis Event Evaluation Height, Weight, BMI Height: '" Weight: lbs. oz. kg; 38.13 BMI Method: Exam Exam Patient acknowledged, consented, and participated in this virtual visit which was conducted using real time audio/video Vital Signs Date Time Temp Pulse Resp B/P (MAP) Pulse Ox O2 Delivery O2 Flow Rate FiO2 08/08/22 08:00 94 High Flow N/C 11.00 08/08/22 08:00 131 15 119/96 (104) 94 High Flow N/C 11.00 08/08/22 07:55 36.0 08/08/22 07:23 94 High Flow N/C 12.00 08/08/22 07:00 134 08/08/22 07:00 High Flow N/C 11.00 08/08/22 06:00 124 11 98/87 (91) 87 High Flow N/C 12.00 08/08/22 05:00 58 14 97/67 (77) 92 High Flow N/C 12.00 08/08/22 04:04 94 High Flow N/C 12.00 08/08/22 04:00 62 33 102/70 (81) 94 High Flow N/C 12.00 08/08/22 03:00 70 10 109/66 (80) 94 High Flow N/C 12.00 08/08/22 02:24 91 High Flow N/C 12.00 08/08/22 02:00 66 15 98/75 (83) 96 High Flow N/C 12.00 08/08/22 01:00 62 08/08/22 01:00 63 15 119/79 (92) 96 High Flow N/C 8.00 08/08/22 00:30 36.2 67 16 130/85 95 High Flow N/C 8.00 08/08/22 00:00 76 14 132/78 (96) 94 High Flow N/C 8.00 08/07/22 23:59 93 High Flow N/C 8.00 08/07/22 23:00 73 20 115/95 (102) 96 High Flow N/C 8.00 08/07/22 22:25 36.2 73 13 141/92 95 High Flow N/C 8.00 08/07/22 22:08 36.1 75 14 119/75 93 High Flow N/C 9.00 08/07/22 22:00 73 29 141/88 (105) 94 High Flow N/C 8.00 08/07/22 21:00 163 29 116/77 (90) 94 High Flow N/C 8.00 08/07/22 20:00 93 High Flow N/C 8.00 08/07/22 20:00 35.6 120 28 95/88 (90) 92 High Flow N/C 2.00 08/07/22 20:00 146 27 129/87 (101) 95 High Flow N/C 8.00 08/07/22 19:00 146 08/07/22 19:00 134 15 92/68 (76) 95 High Flow N/C 2.00 08/07/22 18:51 94 High Flow N/C 6.00 08/07/22 18:00 74 12 110/77 (88) 94 High Flow N/C 2.00 08/07/22 17:00 73 11 131/91 (104) 92 High Flow N/C 2.00 08/07/22 16:00 36.0 08/07/22 16:00 67 23 136/91 (106) 92 High Flow N/C 2.00 08/07/22 16:00 96 High Flow N/C 2.00 08/07/22 15:00 66 16 155/88 (110) 92 High Flow N/C 2.00 08/07/22 14:41 93 High Flow N/C 3.00 08/07/22 14:00 68 17 132/78 (96) 90 High Flow N/C 2.00 08/07/22 13:00 113 15 120/93 (102) 90 High Flow N/C 2.00 08/07/22 12:57 117 08/07/22 12:45 112 15 116/83 (94) 92 High Flow N/C 2.00 08/07/22 12:15 124 15 119/75 (90) 91 High Flow N/C 2.00 08/07/22 12:00 62 13 117/69 (85) 91 High Flow N/C 2.00 08/07/22 12:00 93 High Flow N/C 2.00 08/07/22 12:00 36.2 08/07/22 11:45 62 13 117/69 (85) 91 High Flow N/C 2.00 08/07/22 11:30 97 118/70 (86) High Flow N/C 2.00 08/07/22 10:00 72 18 95 High Flow N/C 2.00 I & O 08/08/22 07:00 Intake Total 2859 ml Output Total 3425 ml Balance -566 ml Height & Weight Height: '" Weight: lbs. oz. kg; 38.13 BMI Method: General Appearance: No Apparent Distress, Anxious, Moderate Distress, Obese HEENT: Other Neck: Full Range of Motion, Normal Inspection, Non Tender, Supple, Carotid Bruit Respiratory: Decreased Breath Sounds, Stridor Cardiovascular: Irregularly Irregular, Other Capillary Refill: Less Than 3 Seconds Peripheral Pulses: 2+ Dorsalis Pedis (R), 2+ Left Dors-Pedis (L) Gastrointestinal: normal bowel sounds, non tender, soft Extremity: Normal Capillary Refill, Normal Inspection, Normal Range of Motion, Non Tender, No Calf Tenderness, No Pedal Edema Neurologic/Psychiatric: Alert, Oriented x3 Skin: Normal Color, Warm/Dry Lymphatic: No Adenopathy Results Lab Laboratory Tests 08/07/22 05:10 08/08/22 02:56 HERB TANG MD Aug 08, 2022 09:19
[2022-08-08] MEDS: MICONAZOLE 2% POWDER (DESENEX AF) 90 GM TOP SCH ×2 (09:25→20:44)
[2022-08-08] MEDS: CALCIUM CARBONATE 500 MG (TUMS) TAB.CHEW PO PRN (09:27)
[2022-08-08] MEDS: FAMOTIDINE 20 MG (PEPCID) TABLET PO SCH (20:43)
[2022-08-08] MEDS: AtorvaSTATin TABLET 10 MG TABLET PO SCH (20:43)
[2022-08-09] MEDS: RT-ALBUTEROL/IPRATROPIUM 3 ML (DUONEB) VIAL INH SCH ×5 (03:07→18:53)
[2022-08-09 05:58] LABS: BASOPHILS % (AUTO) 0 % (0-10); EOSINOPHILS # (AUTO) 0.2 10^3/uL (0.0-0.3); EOSINOPHILS % (AUTO) 3 % (0-10); HEMATOCRIT 32 % (35-52); HEMOGLOBIN 10.2 g/dL (11.5-16.0); LYMPHOCYTES # (AUTO) 1.6 10^3/uL (1.0-4.0); LYMPHOCYTES % (AUTO) 21 % (12-44); MEAN CORPUSCULAR HEMOGLOBIN 27 pg (25-34); MEAN CORPUSCULAR HGB CONC 32 g/dL (32-36); MEAN CORPUSCULAR VOLUME 85 fL (80-99); MEAN PLATELET VOLUME 11.9 fL (9.0-12.2); MONOCYTES # (AUTO) 0.7 10^3/uL (0.0-1.0); MONOCYTES % (AUTO) 9 % (0-12); NEUTROPHILS # (AUTO) 5.1 10^3/uL (1.8-7.8); NEUTROPHILS % (AUTO) 67 % (42-75); PLATELET COUNT 211 10^3/uL (130-400); WHITE BLOOD COUNT 7.7 10^3/uL (4.3-11.0)
[2022-08-09 06:11] LABS: POTASSIUM 3.5 MMOL/L (3.6-5.0)
[2022-08-09 06:12] LABS: CALCIUM 8.1 MG/DL (8.5-10.1)
[2022-08-09 06:16] LABS: CREATININE SERUM 0.96 MG/DL (0.60-1.30)
[2022-08-09] MEDS: POTASSIUM CL 10MEQ/50ML IVPB 50 ML IV SCH (06:31)
[2022-08-09] MEDS: KCL 20 MEQ TAB (K-DUR) PO SCH (06:31)
[2022-08-09] MEDS ORDERED: KCL 20 MEQ TAB (K-DUR) PO ONE (06:45)
[2022-08-09] MEDS: CATHETER FLUSH 10 ML SYR IVP SCH ×3 (06:58→23:00)
[2022-08-09] MEDS: MAGNESIUM 1 GM/100 ML IVPB 100 ML IV SCH (06:59)
--- NOTE | 2022-08-09 07:46 | Progress Note - Hospitalist ---
Subjective HPI/CC On Admission Date Seen by Provider: Aug 09, 2022 Time Seen by Provider: 10:30 Subjective/Events-last exam Patient is sedated HR 58 BP low Poor reserve Review of Systems General: Fatigue, Malaise Objective Exam Vital Signs Vital Signs Date Time Temp Pulse Resp B/P (MAP) Pulse Ox O2 Delivery O2 Flow Rate FiO2 08/09/22 18:53 93 High Flow N/C 4.00 08/09/22 16:00 60 27 115/69 (84) 08/09/22 16:00 36.4 08/05/22 23:59 35 Capillary Refill : Less Than 3 Seconds General Appearance: No Apparent Distress, WD/WN, Chronically ill Respiratory: Lungs Clear, Normal Breath Sounds, Decreased Breath Sounds Cardiovascular: Bradycardia Gastrointestinal: Normal Bowel Sounds Results/Procedures Lab Laboratory Tests 08/09/22 05:23 Patient resulted labs reviewed. Assessment/Plan Assessment and Plan Assess & Plan/Chief Complaint (1) Respiratory failure Status: Acute Assessment & Plan: Improved with bipap, etiology pulmonary edema vs COPD exacerbation. 08/06/22 stable on 5 lpm supplemental oxygen, continuing diuresis 08/07/22 continues to use supplemental oxygen, but down to 2lpm this am, will decrease furosemide dosing given worsening creatinine. Qualifiers: Qualified Codes: J96.01 - Acute respiratory failure with hypoxia (2) Pulmonary edema Status: Acute Assessment & Plan: IV lasix x 1 now, echocardiogram ordered. 08/06/22 IV lasix 40 mg BID per Cardiology 08/07/22 Decrease lasix to 40 mg daily due to increasing creatinine and cath today. Qualifiers: Qualified Codes: J81.0 - Acute pulmonary edema (3) Atrial fibrillation with RVR Status: Acute Assessment & Plan: New onset a fib, improved with one dose of cardizem in ER, Cardiology consulted, appreciate recommendations. Echo pending. TSH pending. Enoxaparin treatment dose started. 08/06/22 TSH nml. Changed to amiodarone per Cardiology. (4) Hypertension Status: Chronic Assessment & Plan: Resume home meds Qualifiers: Qualified Codes: I10 - Essential (primary) hypertension (5) Acute systolic CHF (congestive heart failure) Status: Acute Assessment & Plan: Echo after admit with EF 30%, appreciate Cardiology recommendations. Cath 08/07, awaiting results. (6) COPD (chronic obstructive pulmonary disease) Status: Chronic Assessment & Plan: Per chart review, although patient denies. Received steroids and breathing treatment in ER without much improvement in wheezing, unclear if COPD exacerbation vs CHF and pulmonary edema. Amee. 08/06/22 no wheezing (7) Acute kidney insufficiency Status: Acute Assessment & Plan: Suspect secondary to diuresis, which is needed. Monitor closely. (8) Anemia Status: Acute Assessment & Plan: Normal hemoglobin on admit, suspect drop related to blood draws. Monitor closely. (9) jail resident Status: Chronic Assessment & Plan: Pt unable to clarify why she is an NH resident, states she had a leg fracture a few years ago, but is able to walk now with walker. Per clinic chart review has diagnosis of cognitive dysfunction. Is alert and oriented this morning. (10) DVT prophylaxis Status: Acute Assessment & Plan: Treatment dose enoxaparin ADRIANA TOWNSEND DO Aug 09, 2022 07:46
[2022-08-09 07:52] VITALS: BP 126/72
[2022-08-09] MEDS: MICONAZOLE 2% POWDER (DESENEX AF) 90 GM TOP SCH ×2 (08:08→20:08)
[2022-08-09] MEDS: FUROSEMIDE 40 MG/4 ML INJ (LASIX) IVP SCH (08:08)
[2022-08-09] MEDS: AMIODARONE 200 MG (CORDARONE) TAB PO SCH ×2 (08:08→20:06)
[2022-08-09] MEDS: LOSARTAN 25 MG (COZAAR) TAB PO SCH (08:08)
--- NOTE | 2022-08-09 08:43 | Cardiology Progress Note ---
Subjective Date Seen by Provider: Aug 09, 2022 Time Seen by Provider: 08:41 Subjective/Events-last exam Patient was seen at bedside, laying down comfortably, still short of breath using 10 L nasal cannula. Review of Systems General: No Chills, No Night Sweats; Fatigue; No Malaise, No Appetite, No Other HEENT: No Head Aches, No Visual Changes, No Eye Pain, No Ear Pain, No Dysphasia, No Sinus Congestion, No Post Nasal Drip, No Sore Throat, No Other Pulmonary: Dyspnea; No Cough, No Pleuritic Chest Pain, No Other Cardiovascular: No: Chest Pain, Palpitations, Orthopnea, Paroxysmal Noc. Dyspnea, Edema, Lt Headedness, Other Objective-Cardiology Exam Last Set of Vital Signs Vital Signs 08/05/22 08/09/22 08/09/22 08/09/22 23:59 07:13 07:52 07:58 Temp 36.2 Pulse 67 Pulse Ox 93 O2 Delivery High Flow N/C O2 Flow Rate 8.00 FiO2 35 I&O Intake and Output 08/09/22 00:00 Intake Total 2262 ml Output Total 1325 ml Balance 937 ml Intake Oral 1762 ml IV Total 500 ml Output Urine Total 1325 ml General: Alert, Oriented X3, Cooperative HEENT: Atraumatic, PERRLA Neck: Supple, No JVD, No Thyromegaly Lungs: Other (expiratory wheezing) Heart: Regular Rate, Normal S1, Normal S2 Abdomen: Normal Bowel Sounds, Soft Extremities: No Clubbing, No Cyanosis, Other (Mild edema) Skin: No Rashes, No Breakdown, No Significant Lesion Neuro: Normal Gait, Normal Speech, Strength at 5/5 X4 Ext, Normal Tone, Sensation Intact Psych/Mental Status: Mood NL Results Lab Laboratory Tests 08/09/22 05:23 A/P-Cardiology Admission Diagnosis Acute respiratory failure Multifocal atrial tachycardia Pulmonary edema Hypertension Assessment/Plan Status post acute respiratory failure, responded well to diuretics. Currently on 10 L nasal cannula, unable to tolerate a lower oxygen Continue Lasix 40 mg IV daily Evaluate chest x-ray Coronary artery disease, cardiac catheterization carried out on August 07, 2022 showing mild disease nonobstructive disease, continue to monitor Status post right groin bleed, there are bruising on the groin. No significant hematoma was noted. Received 1 unit of packed RBC, H&H stable Was hypotensive probably secondary to vagal response. Blood pressure and H&H are stable stable at this time Paroxysmal atrial fibrillation, in and out of atrial fibrillation, on amiodarone Tolerating Cardizem, I will switch to Cardizem CD 120 mg daily Changing Lovenox to Eliquis 5 mg twice daily Continue to monitor Multiple episodes of sustained ventricular tachycardia, severe cardiomyopathy. Will evaluate for LifeVest, Responded well to amiodarone, continue on oral amiodarone Congestive heart failure, acute left ventricular systolic dysfunction, dilated nonischemic cardiomyopathy NYHA class III-IV Tolerating losartan and Coreg. Awaiting LifeVest Hypertension, maintained on lisinopril as an outpatient Currently on losartan and Lopressor and Cardizem. Patient is a [facility] resident BEAN CARDONA MD Aug 09, 2022 08:43
[2022-08-09] MEDS ORDERED: RT-ALBUTEROL/IPRATROPIUM 3 ML (DUONEB) VIAL INH PRN (09:00)
--- NOTE | 2022-08-09 09:17 | Diagnostic Imaging Report ---
INDICATION: Dyspnea. COMPARISON: 08/05/2022. FINDINGS: The 5 lobe pulmonary opacities are favored to reflect edema and are diffusely unchanged. More localized consolidation in the left base, however, has progressed. This is accompanied by some volume loss. It is unclear if there is left lower lobe pneumonia or atelectasis. IMPRESSION: 1. The diffuse interstitial changes are stable; however, there is increased localized left lower lobe density, atelectasis versus left lower lobe pneumonia. 2. No other change. Dictated by: Dictated on workstation # [id number]
[2022-08-09] MEDS: dilTIAZem120 MG (CARDIZEM CD) CAP PO SCH (09:40)
[2022-08-09] MEDS: APIXABAN 5 MG (ELIQUIS) TABLET PO SCH ×2 (09:40→20:06)
[2022-08-09] MEDS: AtorvaSTATin TABLET 10 MG TABLET PO SCH (20:06)
[2022-08-09] MEDS: FAMOTIDINE 20 MG (PEPCID) TABLET PO SCH (20:06)
[2022-08-10] VITALS (7 sets, daily range): BP systolic 89–138; BP diastolic 46–72
[2022-08-10 04:52] LABS: BASOPHILS % (AUTO) 0 % (0-10); EOSINOPHILS # (AUTO) 0.3 10^3/uL (0.0-0.3); EOSINOPHILS % (AUTO) 4 % (0-10); HEMATOCRIT 33 % (35-52); HEMOGLOBIN 10.4 g/dL (11.5-16.0); LYMPHOCYTES # (AUTO) 1.8 10^3/uL (1.0-4.0); LYMPHOCYTES % (AUTO) 23 % (12-44); MEAN CORPUSCULAR HEMOGLOBIN 27 pg (25-34); MEAN CORPUSCULAR HGB CONC 31 g/dL (32-36); MEAN CORPUSCULAR VOLUME 86 fL (80-99); MEAN PLATELET VOLUME 11.5 fL (9.0-12.2); MONOCYTES # (AUTO) 0.7 10^3/uL (0.0-1.0); MONOCYTES % (AUTO) 9 % (0-12); NEUTROPHILS # (AUTO) 5.1 10^3/uL (1.8-7.8); NEUTROPHILS % (AUTO) 63 % (42-75); PLATELET COUNT 235 10^3/uL (130-400)
[2022-08-10 04:54] LABS: ALBUMIN 3.4 GM/DL (3.2-4.5); POTASSIUM 4.1 MMOL/L (3.6-5.0)
[2022-08-10 04:55] LABS: CALCIUM 8.4 MG/DL (8.5-10.1)
[2022-08-10 04:58] LABS: BILIRUBIN,TOTAL 0.8 MG/DL (0.1-1.0)
[2022-08-10 05:00] LABS: CREATININE SERUM 1.01 MG/DL (0.60-1.30)
[2022-08-10] MEDS: CATHETER FLUSH 10 ML SYR IVP SCH ×3 (05:19→20:50)
[2022-08-10] MEDS: RT-ALBUTEROL/IPRATROPIUM 3 ML (DUONEB) VIAL INH SCH ×4 (07:09→21:35)
--- NOTE | 2022-08-10 08:25 | Cardiology Progress Note ---
Subjective Date Seen by Provider: Aug 10, 2022 Time Seen by Provider: 08:24 Subjective/Events-last exam Patient is laying down in bed, feeling better. No new complain Maintained on 4 L nasal cannula, I will dialyze down to 2 L Review of Systems General: No Chills, No Night Sweats, No Fatigue, No Malaise, No Appetite, No Other HEENT: No Head Aches, No Visual Changes, No Eye Pain, No Ear Pain, No Dysphasia, No Sinus Congestion, No Post Nasal Drip, No Sore Throat, No Other Pulmonary: Dyspnea; No Cough, No Pleuritic Chest Pain, No Other Cardiovascular: No: Chest Pain, Palpitations, Orthopnea, Paroxysmal Noc. Dyspnea, Edema, Lt Headedness, Other Objective-Cardiology Exam Last Set of Vital Signs Vital Signs 08/05/22 08/10/22 08/10/22 08/10/22 08/10/22 23:59 04:00 05:04 07:00 07:09 Temp 37.0 Pulse 74 B/P (MAP) 129/75 (93) Pulse Ox 95 O2 Delivery High Flow N/C O2 Flow Rate 4.00 FiO2 35 I&O Intake and Output 08/10/22 00:00 Intake Total 1650 ml Output Total 1570 ml Balance 80 ml Intake Oral 1650 ml Output Urine Total 1570 ml General: Alert, Oriented X3, Cooperative HEENT: Atraumatic, PERRLA Neck: Supple, No JVD, No Thyromegaly Lungs: Other (expiratory wheezing) Heart: Regular Rate, Normal S1, Normal S2 Abdomen: Normal Bowel Sounds, Soft Extremities: No Clubbing, No Cyanosis, Other (Mild edema) Skin: No Rashes, No Breakdown, No Significant Lesion Neuro: Normal Gait, Normal Speech, Strength at 5/5 X4 Ext, Normal Tone, Sensation Intact Psych/Mental Status: Mood NL Results Lab Laboratory Tests 08/10/22 04:21 A/P-Cardiology Admission Diagnosis Acute respiratory failure Multifocal atrial tachycardia Pulmonary edema Hypertension Assessment/Plan Status post acute respiratory failure, responded well to diuretics. Currently on 4 L nasal cannula, I will try to wean her down to 2 L Continue on Lasix, switching to oral, adding Aldactone 25 mg daily Okay for discharge from cardiology standpoint Coronary artery disease, cardiac catheterization carried out on August 07, 2022 showing mild disease nonobstructive disease, continue to monitor Status post right groin bleed, there are bruising on the groin. No significant hematoma was noted. Received 1 unit of packed RBC, H&H stable Was hypotensive probably secondary to vagal response. Blood pressure and H&H are stable stable at this time Paroxysmal atrial fibrillation, in and out of atrial fibrillation, on amiodarone Tolerating Cardizem, I will switch to Cardizem CD 120 mg daily Changing Lovenox to Eliquis 5 mg twice daily Continue to monitor Multiple episodes of sustained ventricular tachycardia, severe cardiomyopathy. Will evaluate for LifeVest, Responded well to amiodarone, continue on oral amiodarone Congestive heart failure, acute left ventricular systolic dysfunction, dilated nonischemic cardiomyopathy NYHA class III-IV Tolerating losartan and Coreg. Awaiting LifeVest Hypertension, maintained on lisinopril as an outpatient Currently on losartan and Lopressor and Cardizem. [facility] is a [facility] resident BEAN CARDONA MD Aug 10, 2022 08:25
[2022-08-10] MEDS: APIXABAN 5 MG (ELIQUIS) TABLET PO SCH ×2 (08:43→20:49)
[2022-08-10] MEDS: LOSARTAN 25 MG (COZAAR) TAB PO SCH (08:43)
[2022-08-10] MEDS: dilTIAZem120 MG (CARDIZEM CD) CAP PO SCH (08:44)
[2022-08-10] MEDS: MICONAZOLE 2% POWDER (DESENEX AF) 90 GM TOP SCH ×2 (08:44→20:50)
[2022-08-10] MEDS: AMIODARONE 200 MG (CORDARONE) TAB PO SCH ×2 (08:44→20:44)
[2022-08-10] MEDS: FUROSEMIDE 40 MG (LASIX) TAB PO SCH ×2 (08:46→16:36)
[2022-08-10] MEDS: SPIRONOLACTONE 25 MG (ALDACTONE) TAB PO SCH (08:46)
--- NOTE | 2022-08-10 10:35 | Physician Query Clarification ---
Physician Query-General Query to Physician: The medical record reflects the following clinical scenario: History/Risk factors: HTN, Smoker, Clinical Findings: Documentation of "pulmonary edema, acute" on H and P, Pro BNP from day of admission 4735, Per cardiology on the day of admission "congestive heart failure acute left ventricular systolic dysfunction" EF documented to be Bilateral LE pitting edema, EF 30-35% per current Echo, "Acute respiratory failure" Treatment: IV lasix, BID, I and O, Cardiology consultation, echo cardiogram, Cardiac cath Question: Can you further specify Acute systolic CHF documented on the PN from 08/07/2022 per the clinical indicators above? Please document response in the Progress Notes or Discharge Summary. 1. Acute Systolic CHF, Present On Admission? 2. Other, with explanation of clinical findings 3. Clinically undetermined, no explanation for clinical findings In responding to this query, please exercise your independent professional judgment. The purpose of this communication is to more accurately reflect the complexity of your patients condition. The fact that a question is asked does not imply that any particular answer is desired or expected. Thank you for timely response to this clarification. Yessenia Vizcaino MSN, RN Clinical Entertainment Centre Manager PHYSICIAN RESPONSE: Based on the clinical findings in the record, please respond to the query above on this document as an addendum. Physician Response: Physician Response 1, patient ultimately diagnosed with acute systolic CHF, but was unknown whether present on admit until echo done- did demonstrate this diagnosis which was present on admit. If you have questions please contact: Labelling Machine Operator: Ext: Thank you for your time and cooperation. Clinical Entertainment Centre Manager/Labelling Machine Operator This is a permanent part of the medical record YESSENIA VIZCAINO Aug 10, 2022 10:35 AYESHA ROBERTS MD Aug 10, 2022 15:08
--- NOTE | 2022-08-10 10:55 | Progress Note - Hospitalist ---
RICHARD BASSETT 08/10/22 1055: Subjective HPI/CC On Admission Date Seen by Provider: Aug 10, 2022 Time Seen by Provider: 09:15 Subjective/Events-last exam Pt resting comfortably in chair. States she is feeling better today, other than some mild shortness of breath while transferring from bed to chair. States she is ready for her morning coffee and breakfast, and feels better once "all organized." She denies fever, chills, N/V/D, chest pain, or any other sx. Moving her to floor today. Review of Systems General: No Chills, No Night Sweats, No Fatigue HEENT: No Head Aches, No Visual Changes Pulmonary: Dyspnea (mild, during transfer from bed to chair); No Cough Cardiovascular: No: Chest Pain, Palpitations, Edema Gastrointestinal: No: Nausea, Vomiting, Abdominal Pain, Diarrhea, Constipation Genitourinary: No Dysuria, No Incontinence Neurological: No: Numbness, Confusion Objective Exam Vital Signs Vital Signs Date Time Temp Pulse Resp B/P (MAP) Pulse Ox O2 Delivery O2 Flow Rate FiO2 08/10/22 08:49 92 High Flow N/C 4.00 08/10/22 08:00 36.7 08/10/22 08:00 70 18 138/72 (94) 08/05/22 23:59 35 Capillary Refill : Less Than 3 Seconds General Appearance: No Apparent Distress, Chronically ill (appears older than stated age), Obese HEENT: PERRL/EOMI, Pharynx Normal, Moist Mucous Membranes Neck: Non Tender, Supple Respiratory: Chest Non Tender, Lungs Clear, No Accessory Muscle Use, No Respiratory Distress, Decreased Breath Sounds; No Rhonci, No Stridor; Wheezing (very mild expiratory wheezing) Cardiovascular: Regular Rate, Rhythm, No Edema, No Gallop, No JVD, No Murmur, Normal Peripheral Pulses Gastrointestinal: Normal Bowel Sounds, Non Tender, Soft Back: No CVA Tenderness Extremity: Non Tender, No Calf Tenderness, Swelling (mild LE swelling, she states it has improved) Neurologic/Psychiatric: Alert, Oriented x3, Normal Mood/Affect Skin: Normal Color, Warm/Dry Lymphatic: No Adenopathy Results/Procedures Lab Laboratory Tests 08/10/22 04:21 Patient resulted labs reviewed. Assessment/Plan Assessment and Plan Assess & Plan/Chief Complaint Assessment: Acute Respiratory Failure - improved. Currently on 4L NC Pulmonary edema - Lasix and spirinolactone (per cardiology) Afib with RVR - in sinus rhythm today. Tolerating cardizem. Started on eliquis (per cardiology) Acute Systolic CHF - Life vest in place Dialated Cardiomyopathy HTN - losartan and Lopressor and Cardizem COPD Plan: Continue to monitor closely. Will DC lira cath. Start PT/OT. Encourage IS. RAMILA DOHERTY DO 08/11/22 0521: Subjective Subjective/Events-last exam Doing well Sleeps most of the time which appears to be baseline O2 sat decreases with activity New O2 dependence Life vest intact Review of Systems Pulmonary: Dyspnea (mild, during transfer from bed to chair) Objective Exam General Appearance: No Apparent Distress, WD/WN, Chronically ill (appears older than stated age), Obese Respiratory: Decreased Breath Sounds Cardiovascular: Regular Rate, Rhythm Assessment/Plan Assessment and Plan Assess & Plan/Chief Complaint Move to 4th PT OT Needs NH Supervisory-Addendum Brief Verification & Attestation Participated in pt care: history, MDM, physical Personally performed: exam, history, MDM, supervision of care Care discussed with: Medical Student Procedures: n/a Results interpretation: Verified all documentation Verification and Attestation of Medical Student E/M Service A medical student performed and documented this service in my presence. I reviewed and verified all information documented by the medical student and made modifications to such information, when appropriate. I personally performed the physical exam and medical decision making. Ramila Doherty, Aug 11, 2022,05:20 RICHARD BASSETT Aug 10, 2022 10:55 RAMILA DOHERTY DO Aug 11, 2022 05:21
--- NOTE | 2022-08-10 11:07 | Physical Therapy Evaluation ---
PT Evaluation-General Medical Diagnosis Admission Date Aug 05, 2022 at 08:52 Medical Diagnosis: A-fib with RVR/pulmonary edema Onset Date: Aug 05, 2022 Therapy Diagnosis Therapy Diagnosis: generalized weakness/debility Precautions Precautions/Isolations: Fall Prevention, Standard Precautions Referral Physician: Chas Reason for Referral: Evaluation/Treatment Medical History Pertinent Medical History: HTN Current History EMS from [place] secondary to SOA Reviewed History: Yes Social History Home: Custodial Prior Prior Level of Function SCALE: Activities may be completed with or without assistive devices. 6-Kntbohnmjx-bcuystt completes the activity by him/herself with no assistance from a helper. 5-Set-up or Clean-up Assistance-helper sets up or cleans up; patient completes a ctivity. [place] assists only prior to or following the activity. 4-Supervision or Touching Assistance-helper provides verbal cues and/or touching/steadying and/or contact guard assistance as patient completes activity. Assistance may be provided throughout the activity or intermittently. 3-Partial/Moderate Assistance-helper does LESS THAN HALF the effort. [place] lifts, holds or supports trunk or limbs, but provides less than half the effort. 2-Substantial/Maximal Assistance-helper does MORE THAN HALF the effort. [place] lifts or holds trunk or limbs and provides more than half the effort. 9-Nvgxlmwis-gyzouu does ALL the effort. Patient does none of the effort to complete the activity. Or, the assistance of 2 or more helpers is required for the patient to complete the activity. If activity was not attempted, code reason: 7-Patient Refused. 9-Not Applicable-not attempted and the patient did not perform the activity before the current illness, exacerbation or injury. 10-Not Attempted due to Environmental Limitations-(lack of equipment, weather restraints, etc.). 88-Not Attempted due to Medical Conditions or Safety Concerns. Bed Mobility: 4 Transfers (B,C,W/C): 4 Gait: 4 Stairs: 9 Indoor Mobility (Ambulation): Needed Some Help Stairs: Not Applicalbe Prior Devices Use: Walker PT Evaluation-Current Subjective Patient agrees to PT. Objective Patient Orientation: Person, Time, Situation Attachments: Oxygen, Christianson Catheter, IV ROM/Strength ROM Lower Extremities bilateral LE WFL Strength Lower Extremities 3-/5 grossly bilateral LE all planes Integumentary/Posture Integumentary refer to nursing notes Bladder Incontinence: Christianson Cath Posture WFL Neuromuscular (Tone, Coordination, Reflexes) diminished coordination due to weakness Sensory Vision: Functional Hearing: Functional Transfers Lying to Sitting/Side of Bed(Q: 3 Sit to Stand (QC): 3 Chair/Enz-fs-Hjiel Xfer(QC): 3 Gait Mode of Locomotion: Walk Anticipated Mode of Locomotion: Walk Walk 10 feet (QC): 3 Walk 50 ft with 2 Turns(QC): 88 Walk 150 ft (QC): 88 Distance: 10' Gait Assistive Device: FWW Comments/Gait Description slightly unsteady with PT correct Balance Sitting Static: Normal Sitting Dynamic: Normal Standing Static: Poor Standing Dynamic: Poor Assessment/Needs 71 y.o. female, will benefit from skilled PT to address functional strength and mobility to improve current LOF. Patient is retropulsive with all upright mobility and requires PT assist for safety. Patient is up in recliner with needs met. Rehab Potential: Fair PT Tab Card Press Operator Goals Detention Goals PT Detention Goals Time Frame: Aug 22, 2022 Roll Left & Right (QC): 4 Sit to Lying (QC): 4 Lying-Sitting on Side/Bed(QC): 4 Sit to Stand (QC): 4 Chair/Syn-ce-Fivru Xfer(QC): 4 Toilet Transfer (QC): 4 Walk 10 feet (QC): 4 Walk 50ft with 2 Turns (QC): 4 Walk 150 ft (QC): 4 PT Plan Problem List Problem List: Activity Tolerance, Functional Strength, Safety, Balance, Gait, Transfer, Bed Mobility Treatment/Plan Treatment Plan: Continue Plan of Care Treatment Plan: Bed Mobility, Education, Functional Activity Pat, Functional Strength, Gait, Safety, Therapeutic Exercise, Transfers Treatment Duration: Aug 22, 2022 Frequency: 6 times per week Estimated Hrs Per Day: .25 hour per day Patient and/or Family Agrees t: Yes Time/GCodes Time In: 820 Time Out: 833 Total Billed Treatment Time: 13 Total Billed Treatment 1 visit EVMod 13 min ZAC REYEZ PT Aug 10, 2022 11:07
--- NOTE | 2022-08-10 11:37 | Occupational Therapy Eval ---
OT Evaluation-General/PLF Medical Diagnosis Admission Date Aug 05, 2022 at 08:52 Medical Diagnosis: A-fib with RVR/pulmonary edema Onset Date: Aug 05, 2022 Therapy Diagnosis Therapy Diagnosis: decreased ADL status Precautions Precautions/Isolations: Fall Prevention, Standard Precautions Referral Physician: Chas Medical History Pertinent Medical History: HTN Additional Medical History HTN Current History admit on 08/05/22 from [facility] due to SOA Social History Home: Long Term ADL-Prior Level of Function SCALE: Activities may be completed with or without assistive devices. 8-Kloiwpqwrf-ahfqhnt completes the activity by him/herself with no assistance from a helper. 5-Set-up or Clean-up Assistance-helper sets up or cleans up; patient completes activity. [place] assists only prior to or following the activity. 4-Supervision or Touching Assistance-helper provides verbal cues and/or touching/steadying and/or contact guard assistance as patient completes activity. Assistance may be provided throughout the activity or intermittently. 3-Partial/Moderate Assistance-helper does LESS THAN HALF the effort. [place] lifts, holds or supports trunk or limbs, but provides less than half the effort. 2-Substantial/Maximal Assistance-helper does MORE THAN HALF the effort. [place] lifts or holds trunk or limbs and provides more than half the effort. 2-Uattuqbob-lwdyll does ALL the effort. Patient does none of the effort to complete the activity. Or, the assistance of 2 or more helpers is required for the patient to complete the activity. If activity was not attempted, code reason: 7-Patient Refused. 9-Not Applicable-not attempted and the patient did not perform the activity before the current illness, exacerbation or injury. 10-Not Attempted due to Environmental Limitations-(lack of equipment, weather restraints, etc.). 88-Not Attempted due to Medical Conditions or Safety Concerns. ADL PLOF Comments Pt reports requiring supervision-min A at PLOF with showering, but indicates she was able to dress and toilet without any assistance. She only wears slip on tennis shoes, she is unable to complete socks at baseline. Pt used a walker and w/c at the NH Self Care: Needed Some Help Functional Cognition: Unknown OT Current Status Subjective Pt up in recliner, agreeable to OT tx. Pt hyperverbal throughout tx, easily distracted requiring redirection to conversation/task Mental Status/Objective Attachments: Oxygen Current Hand Dominance: Right Upper Extremity ROM WFL, BUE shoulder flexion to approx 140 degrees, WFL at elbow/wrist/hand Upper Extremity Coordination WFL Upper Extremity Strength grossly 3+/5 ADL-Treatment Eating (QC): 6 (Per nursing report.) Lower Body Dressing (QC): 7 On/Off Footwear (QC): 1 (total assist with gripper socks. This is pt's PLOF.) Toileting Hygiene (QC): 7 Other Treatments Pt in recliner, agreeable to OT Tx. Pt provided information about PLOF and participated in UE screen. Pt hyperverbal with conversation, easily distracted and talked about tangential topics. Pt required frequent redirection to question asked. In order to increase BUE strength and activity tolerance, pt completed x10 reps each of the following BUE exercises: wrist flexion/extension, pronation/supination, finger flexion/extension, front punch, shoulder flexion. O2 saturation between 89-91% with activity. Pt required skilled verbal cues for proper technique, as pt continued with exercises the quality of the movement decreased. OT instructed pt to continue with exercises throughout the day, increasing reps as tolerated, she verbalized understanding. Pt attempted to complete footwear, but states she is unable to doff/don socks at prior level, only wearing slip on shoes. OT doesn't foresee any difficulties with pt being able to don slip on shoes at this time. Post tx, pt in recliner, call light in reach and all needs met. Education OT Patient Education: Correct positioning, Energy conservation, Modified ADL techniques, Progress toward Goal/Update tx plan, Purpose of tx/functional activities, Rehab process Teaching Recipient: Patient Teaching Methods: Discussion Response to Teaching: Verbalize Understanding OT Halfway Goals Pizza Delivery Driver Goals Time Frame: Aug 21, 2022 Eating (QC): 6 Oral Hygiene (QC): 5 Toileting Hygiene (QC): 4 Shower/Bathe Self (QC): 4 Upper Body Dressing (QC): 5 Lower Body Dressing (QC): 4 Additional Goals: 1-Demonstrate ADL Tasks, 2-Verbalize Understanding, 3- ImproveStrength/Pat 1=Demonstrate adherence to instructed precautions during ADL tasks. 2=Patient will verbalize/demonstrate understanding of assistive devices/modifications for ADL. 3=Patient will improve strength/tolerance for activity to enable patient to perform ADL's. OT Education/Plan Problem List/Assessment Assessment: Decreased Activ Tolerance, Decreased UE Strength, Impaired Funct Balance, Impaired I ADL's, Impaired Self-Care Skills Pt would benefit from short term skilled OT services in order to increase BUE strength and activity tolerance, and maximize LOF for return to NH. Discharge Recommendations Plan/Recommendations: Continue POC Therapy Discharge Recommendati: Other, See Comments (NH) Treatment Plan/Plan of Care Patient would benefit from OT for education, treatment and training to promote independence in ADL's, mobility, safety and/or upper extremity function for ADL's. Plan of Care: ADL Retraining, Functional Mobility, UE Funct Exercise/Act Treatment Duration: Aug 21, 2022 Frequency: 3 times per week (3-5 times per week) Rehab Potential: Fair Time/GCodes Start Time: 11:00 Stop Time: 11:15 Total Time Billed (hr/min): 15 Billed Treatment Time 1, ADRIANNA EDWARDS OT Aug 10, 2022 11:37
--- NOTE | 2022-08-10 11:43 | Physician Query Clarification ---
Physician Query-General Query to Physician: The medical record reflects the following clinical scenario: History/Risk factors: HTN, Smoker, Clinical Findings: Documentation of "pulmonary edema, acute" on H and P, Pro B CBX OPERATOR from day of admission 4735, Per cardiology on the day of admission "congestive heart failure acute left ventricular systolic dysfunction" EF documented to be Bilateral LE pitting edema, EF 30-35% per current Echo, "Acute respiratory failure" Treatment: IV lasix, BID, I and O, Cardiology consultation, echo cardiogram, Cardiac cath Question: Can you further specify Acute systolic CHF documented on the PN from 08/07/2022 per the clinical indicators above? Please document response in the Progress Notes or Discharge Summary. 1. Acute Systolic CHF, Present On Admission? 2. Other, with explanation of clinical findings 3. Clinically undetermined, no explanation for clinical findings In responding to this query, please exercise your independent professional judgment. The purpose of this communication is to more accurately reflect the complexity of your patients condition. The fact that a question is asked does not imply that any particular answer is desired or expected. Thank you for timely response to this clarification. Yessenia Vizcaino MSN, RN Clinical Automatic Pattern Edger PHYSICIAN RESPONSE: Based on the clinical findings in the record, please respond to the query above on this document as an addendum. Physician Response: Physician Response 1 If you have questions please contact: Cloth Colorer: Ext: Thank you for your time and cooperation. Clinical Automatic Pattern Edger/Cloth Colorer This is a permanent part of the medical record YESSENIA VIZCAINO Aug 10, 2022 11:43 AYESHA ROBERTS MD Aug 10, 2022 15:08
[2022-08-10] MEDS: CALCIUM CARBONATE 500 MG (TUMS) TAB.CHEW PO PRN (15:07)
[2022-08-10] MEDS: AtorvaSTATin TABLET 10 MG TABLET PO SCH (20:49)
[2022-08-10] MEDS: FAMOTIDINE 20 MG (PEPCID) TABLET PO SCH (20:49)
[2022-08-11 03:09] VITALS: BP 120/79
[2022-08-11] MEDS: FUROSEMIDE 40 MG (LASIX) TAB PO SCH (05:51)
[2022-08-11] MEDS: CATHETER FLUSH 10 ML SYR IVP SCH (05:51)
[2022-08-11 05:57] LABS: BASOPHILS % (AUTO) 0 % (0-10); EOSINOPHILS # (AUTO) 0.3 10^3/uL (0.0-0.3); EOSINOPHILS % (AUTO) 4 % (0-10); HEMATOCRIT 35 % (35-52); LYMPHOCYTES # (AUTO) 2.1 10^3/uL (1.0-4.0); LYMPHOCYTES % (AUTO) 26 % (12-44); MEAN CORPUSCULAR HEMOGLOBIN 27 pg (25-34); MEAN CORPUSCULAR HGB CONC 31 g/dL (32-36); MEAN CORPUSCULAR VOLUME 85 fL (80-99); MONOCYTES # (AUTO) 0.7 10^3/uL (0.0-1.0); MONOCYTES % (AUTO) 8 % (0-12); NEUTROPHILS # (AUTO) 4.8 10^3/uL (1.8-7.8); NEUTROPHILS % (AUTO) 61 % (42-75); PLATELET COUNT 230 10^3/uL (130-400)
[2022-08-11 06:08] LABS: ALBUMIN 3.5 GM/DL (3.2-4.5)
[2022-08-11 06:10] LABS: CALCIUM 8.6 MG/DL (8.5-10.1)
[2022-08-11 06:11] LABS: TOTAL PROTEIN 6.1 GM/DL (6.4-8.2)
[2022-08-11 06:15] LABS: CREATININE SERUM 1.08 MG/DL (0.60-1.30)
[2022-08-11] MEDS: RT-ALBUTEROL/IPRATROPIUM 3 ML (DUONEB) VIAL INH SCH ×2 (07:06→11:34)
[2022-08-11 07:32] VITALS: BP 125/61
[2022-08-11] MEDS ORDERED: polyethylene glycoL POWDER 17 GM (MIRALAX) PACK PO NR (09:00)
[2022-08-11] MEDS ORDERED: SENNA W/DOCUSATE (SENOKOT S) TABLET PO NR (09:00)
--- NOTE | 2022-08-11 09:08 | Cardiology Progress Note ---
Subjective Date Seen by Provider: Aug 11, 2022 Time Seen by Provider: 09:07 Subjective/Events-last exam Patient was seen at bedside, sitting comfortably, no new complaint Review of Systems General: No Chills, No Night Sweats, No Fatigue, No Malaise, No Appetite, No Other HEENT: No Head Aches, No Visual Changes, No Eye Pain, No Ear Pain, No Dysphasia, No Sinus Congestion, No Post Nasal Drip, No Sore Throat, No Other Pulmonary: No Dyspnea, No Cough, No Pleuritic Chest Pain, No Other Cardiovascular: No: Chest Pain, Palpitations, Orthopnea, Paroxysmal Noc. Dyspnea, Edema, Lt Headedness, Other Objective-Cardiology Exam Last Set of Vital Signs Vital Signs 08/05/22 08/11/22 23:59 07:32 Temp 35.3 Pulse 62 Resp 18 B/P (MAP) 125/61 (82) Pulse Ox 94 O2 Delivery High Flow N/C O2 Flow Rate 5.00 FiO2 35 I&O Intake and Output 08/11/22 00:00 Intake Total 1100 ml Output Total 165 ml Balance 935 ml Intake Oral 1100 ml Output Urine Total 165 ml # Voids 6 General: Alert, Oriented X3, Cooperative HEENT: Atraumatic, PERRLA Neck: Supple, No JVD, No Thyromegaly Lungs: Other (expiratory wheezing) Heart: Regular Rate, Normal S1, Normal S2 Abdomen: Normal Bowel Sounds, Soft Extremities: No Clubbing, No Cyanosis, Other (Mild edema) Skin: No Rashes, No Breakdown, No Significant Lesion Neuro: Normal Gait, Normal Speech, Strength at 5/5 X4 Ext, Normal Tone, Sensat ion Intact Psych/Mental Status: Mood NL Results Lab Laboratory Tests 08/11/22 04:45 A/P-Cardiology Admission Diagnosis Acute respiratory failure Multifocal atrial tachycardia Pulmonary edema Hypertension Assessment/Plan Status post acute respiratory failure, responded well to diuretics. Currently on 4 L nasal cannula, I will try to wean her down to 2 L Continue on Lasix, switching to oral, adding Aldactone 25 mg daily Tolerating current medications well. Coronary artery disease, cardiac catheterization carried out on August 07, 2022 showing mild disease nonobstructive disease, continue to monitor Status post right groin bleed, there are bruising on the groin. No significant hematoma was noted. Received 1 unit of packed RBC, H&H stable Was hypotensive probably secondary to vagal response. Blood pressure and H&H are stable stable at this time Paroxysmal atrial fibrillation, in and out of atrial fibrillation, on amiodarone Tolerating Cardizem, I will switch to Cardizem CD 120 mg daily Changing Lovenox to Eliquis 5 mg twice daily Continue to monitor Multiple episodes of sustained ventricular tachycardia, severe cardiomyopathy. Will evaluate for LifeVest, Responded well to amiodarone, continue on oral amiodarone Congestive heart failure, acute left ventricular systolic dysfunction, dilated nonischemic cardiomyopathy NYHA class III-IV Tolerating losartan and Coreg. Awaiting LifeVest Hypertension, maintained on lisinopril as an outpatient Currently on losartan and Lopressor and Cardizem. Patient is a [facility] resident BEAN CARDONA MD Aug 11, 2022 09:08
[2022-08-11] MEDS: AMIODARONE 200 MG (CORDARONE) TAB PO SCH (09:09)
[2022-08-11] MEDS: LOSARTAN 25 MG (COZAAR) TAB PO SCH (09:09)
[2022-08-11] MEDS: SPIRONOLACTONE 25 MG (ALDACTONE) TAB PO SCH (09:09)
[2022-08-11] MEDS: APIXABAN 5 MG (ELIQUIS) TABLET PO SCH (09:09)
[2022-08-11] MEDS: dilTIAZem120 MG (CARDIZEM CD) CAP PO SCH (09:09)
[2022-08-11] MEDS: MICONAZOLE 2% POWDER (DESENEX AF) 90 GM TOP SCH (09:13)
--- NOTE | 2022-08-11 09:58 | Occ Therapy Progress Note ---
Therapy Progress Note Pt declines to participate in OT today. Pt states that she is discharging today and that she just wants to rest. REGGIE LUDWIG Aug 11, 2022 09:58
--- NOTE | 2022-08-11 10:38 | Progress Note ---
RICHARD BASSETT 08/11/22 1038: Progress Note Pt feeling better today and ate breakfast. Has not had a bowel movement yet, given miralax and senna. Life vest in place. Now O2 dependent on 5L. SOB with transfer. Denies abdominal pain, N/V, or chest pain. Plan to dismiss back to [place] today. Hospital Course: Mrs. Gonzalez, 71 YO F, with hx of HTN and COPD was admitted to ICU under Dr. Rios on 08/05/22, from [facility] for acute respiratory distress and Afib with RVR. In the ED she was found to have elevated BNP and pulmonary edema on CXR. She responded well to BIPAP and diuretics, and was subsequently placed on supplemental oxygen, now maintaining O2 dependent status. Cardiology consulted to manage cardiac drugs and provide further recommendations. Echo indicated acute systolic CHF and severe cardiomyopathy with EF of 30%, she tolerated losartan and coreg and was placed on Life vest. Heart cath on 08/07/22 indicated mild nonobstructive disease. She had s/p right groin bleeding requiring 1 unit of packed RBC, her Hb remained stable throughout remainder of stay. She had several episodes of paroxysmal A-fib and ventricular tachycardia, responded well to both amiodorone and cardizem(120mg daily). Her HTN was controlled with losartan and lopressor and maintained on lisinopril as an outpatient. She is anticoagulated with Eliquis (5mg BID). Pt appears to be at her baseline and [facility]. She is agreeable with plan of dismissal. RAMILA TOWNSEND DO 08/11/222046: Supervisory-Addendum Brief Verification & Attestation Participated in pt care: history, MDM, physical Personally performed: exam, history, MDM, supervision of care Care discussed with: Medical Student Procedures: n/a Results interpretation: Verified all documentation Verification and Attestation of Medical Student E/M Service A medical student performed and documented this service in my presence. I reviewed and verified all information documented by the medical student and made modifications to such information, when appropriate. I personally performed the physical exam and medical decision making. Ramila Townsend, Aug 11, 2022,20:47 RICHARD BASSETT Aug 11, 2022 10:38 RAMILA TOWNSEND DO Aug 11, 2022 20:47
[2022-08-11 11:21] VITALS: BP 113/69
[2022-08-11] MEDS ORDERED: CARV6.252 PO (11:27)
[2022-08-11] MEDS ORDERED: AMIO200T65 PO (11:27)
[2022-08-11] MEDS ORDERED: SPIR25TA5 PO (11:27)
[2022-08-11] MEDS ORDERED: FURO40TA4 PO (11:27)
[2022-08-11] MEDS ORDERED: APIX5TAB PO (11:27)
[2022-08-11] MEDS ORDERED: SENN1TAB76 PO (11:27)
[2022-08-11] MEDS ORDERED: LOSA25TA41 PO (11:27)
[2022-08-11] MEDS ORDERED: DILT-27 PO (11:27)
--- NOTE | 2022-08-11 11:28 | Discharge Inst-Skilled Nursing ---
Discharge Inst-Skilled NF Reconcile Patient Problems Problems Reviewed?: Yes Patient Instructions Patient Problems: chf Consult/Follow Up/Orders Skilled NF Admit to: Certification (SNF) I certify that SNF services are required to be given on an inpatient basis because of the above named patient's need for long-term care on a continuing basis for the conditions(s) for which he/she was receiving inpatient hospital services prior to his/her transfer to the SNF. Retirement Facility Order: Nursing Services, Welder Fitter Gas-Evaluate & Treat, Physical Therapy-Evaluate & Treat Oxygen Delivery Method: Nasal Cannula Discharge Diet: No Restrictions Resuscitation Status: Full Code New & Resume Previous Orders New Medications: Amiodarone HCl (Amiodarone HCl) 200 Mg Tablet 400 MG PO BID, #60 TAB Apixaban (Eliquis) 5 Mg Tablet 5 MG PO BID, #60 TAB Carvedilol (Carvedilol) 6.25 Mg Tablet 6.25 MG PO BID, #60 TAB Diltiazem HCl (Diltiazem 24Hr ER) 120 Mg Cap.er.24h 120 MG PO DAILY, #30 CAP Furosemide (Furosemide) 40 Mg Tablet 40 MG PO DAILY@07,17, #60 TAB Losartan Potassium (Losartan Potassium) 25 Mg Tablet 25 MG PO DAILY, #30 TAB Sennosides/Docusate Sodium (Stool Softener-Laxative Tablet) 8.6 Mg-50 Mg Tablet 1 EA PO 0900, #60 TAB Spironolactone (Spironolactone) 25 Mg Tablet 25 MG PO DAILY, #30 TAB Continued Medications: Acetaminophen (Tylenol Extra Strength) 500 Mg Tablet 1000 MG PO Q6H PRN for PAIN-MILD (1-4), TAB Atorvastatin Calcium (Atorvastatin Calcium) 10 Mg Tablet 10 MG PO HS, TAB Calcium Carbonate (Tums) 200 Mg Calcium (500 Mg) Tab.chew 200 MG PO QID PRN for INDIGESTION, TAB Famotidine (Pepcid AC) 10 Mg Tablet 10 MG PO BID, TAB Lisinopril (Lisinopril) 5 Mg Tablet 5 MG PO DAILY, TAB HOLD AND CALL DRAna Rosa SELF IF SBP IS LESS THAN OR EQUAL 90 OR GREATER THEN OR EQUAL TO 160 Mag Hydrox/Al Hydrox/Simeth (Maalox Maximum Strength Susp) 400 Mg-400 Mg-40 Mg/5 Ml Oral.susp 30 ML PO Q4H PRN for INDIGESTION, ML Magnesium Hydroxide (Milk of Magnesia) 400 Mg/5 Ml Oral.susp 30 ML PO PRN PRN for CONSTIPATION-7TH LINE, ML Nystatin (Nystatin) 100,000 Unit/Gram Cream..g. 1 APPLIC TP Q12H PRN for SKIN CONDITION, EA APPLY TO ABDOMINAL FOLDS AND GROIN Polyethylene Glycol 3350 (Miralax) 17 Gram Powd.pack 17 GM PO DAILY PRN for CONSTIPATION-2ND LINE, EACH Ramila Doherty Aug 11, 2022 11:27 RAMILA DOHERTY DO Aug 11, 2022 11:28
--- NOTE | 2022-08-11 11:28 | Discharge Summary ---
Discharge Summary Hospital Course Was the Problem List Reviewed?: Yes Problems/Dx: (1) Acute systolic CHF (congestive heart failure) Status: Acute (2) Acute kidney insufficiency Status: Acute (3) Anemia Status: Acute (4) Atrial fibrillation with RVR Status: Acute (5) Respiratory failure Status: Acute Qualifiers: Qualified Codes: J96.01 - Acute respiratory failure with hypoxia (6) Hypertension Status: Chronic Qualifiers: Qualified Codes: I10 - Essential (primary) hypertension (7) Pulmonary edema Status: Acute Qualifiers: Qualified Codes: J81.0 - Acute pulmonary edema (8) retirement resident Status: Chronic Hospital Course Date of Admission: Aug 05, 2022 at 08:52 Admission Diagnosis : Family Physician/Provider: Spencer Dowling MD Date of Discharge: 08/11/22 Discharge Diagnosis: [ ] Hospital Course: Hospital Course: Mrs. Gonzalez, 71 YO F, with hx of HTN and COPD was admitted to ICU under Dr. Rios on 08/05/22, from [facility] for acute respiratory distress and Afib with RVR. In the ED she was found to have elevated BNP and pulmonary edema on CXR. She responded well to BIPAP and diuretics, and was subsequently placed on supplemental oxygen, now maintaining O2 dependent status. Cardiology consulted to manage cardiac drugs and provide further recommendations. Echo indicated acute systolic CHF and severe cardiomyopathy with EF of 30%, she tolerated losartan and coreg and was placed on Life vest. Heart cath on 08/07/22 indicated mild nonobstructive disease. She had s/p right groin bleeding requiring 1 unit of packed RBC, her Hb remained stable throughout remainder of stay. She had several episodes of paroxysmal A-fib and ventricular tachycardia, responded well to both amiodorone and cardizem(120mg daily). Her HTN was controlled with losartan and lopressor and maintained on lisinopril as an outpatient. She is anticoagulated with Eliquis (5mg BID). Pt appears to be at her baseline and will return to the detention today. She is agreeable with plan of dismissal. Labs and Pending Lab Test: Laboratory Tests 08/11/22 04:45: White Blood Count 8.0, Red Blood Count 4.12, Hemoglobin 11.0L, Hematocrit 35, Mean Corpuscular Volume 85, Mean Corpuscular Hemoglobin 27, Mean Corpuscular Hemoglobin Concent 31L, Red Cell Distribution Width 15.4H, Platelet Count 230, Mean Platelet Volume 11.0, Immature Granulocyte % (Auto) 1, Neutrophils (%) (Auto) 61, Lymphocytes (%) (Auto) 26, Monocytes (%) (Auto) 8, Eosinophils (%) (Auto) 4, Basophils (%) (Auto) 0, Neutrophils # (Auto) 4.8, Lymphocytes # (Auto) 2.1, Monocytes # (Auto) 0.7, Eosinophils # (Auto) 0.3, Basophils # (Auto) 0.0, Immature Granulocyte # (Auto) 0.0, Sodium Level 136, Potassium Level 4.0, Chloride Level 101, Carbon Dioxide Level 26, Anion Gap 9, Blood Urea Nitrogen 22H, Creatinine 1.08, Estimat Glomerular Filtration Rate 55, BUN/Creatinine Ratio 20, Glucose Level 170H, Calcium Level 8.6, Corrected Calcium 9.0, Total Bilirubin 1.0, Aspartate Amino Transf (AST/SGOT) 21, Alanine Aminotransferase (ALT/SGPT) 25, Alkaline Phosphatase 83, Total Protein 6.1L, Albumin 3.5 Microbiology 08/05/22 MRSA Screen - Final, Complete MRSA not isolated Home Meds Active Stool Softener-Laxative Tablet (Sennosides/Docusate Sodium) 8.6 Mg-50 Mg Tablet 1 Ea PO 0900 Furosemide 40 Mg Tablet 40 Mg PO DAILY@07,17 Spironolactone 25 Mg Tablet 25 Mg PO DAILY Losartan Potassium 25 Mg Tablet 25 Mg PO DAILY Diltiazem 24Hr ER (Diltiazem HCl) 120 Mg Cap.er.24h 120 Mg PO DAILY Carvedilol 6.25 Mg Tablet 6.25 Mg PO BID Amiodarone HCl 200 Mg Tablet 400 Mg PO BID Eliquis (Apixaban) 5 Mg Tablet 5 Mg PO BID Reported Nystatin 100,000 Unit/Gram Cream..g. 1 Applic TP Q12H PRN APPLY TO ABDOMINAL FOLDS AND GROIN Tums (Calcium Carbonate) 200 Mg Calcium (500 Mg) Tab.chew 200 Mg PO QID PRN Miralax (Polyethylene Glycol 3350) 17 Gram Powd.pack 17 Gm PO DAILY PRN Milk of Magnesia (Magnesium Hydroxide) 400 Mg/5 Ml Oral.susp 30 Ml PO PRN PRN Maalox Maximum Strength Susp (Mag Hydrox/Al Hydrox/Simeth) 400 Mg-400 Mg-40 Mg/5 Ml Oral.susp 30 Ml PO Q4H PRN Tylenol Extra Strength (Acetaminophen) 500 Mg Tablet 1,000 Mg PO Q6H PRN Pepcid AC (Famotidine) 10 Mg Tablet 10 Mg PO BID Lisinopril 5 Mg Tablet 5 Mg PO DAILY HOLD AND CALL DR. DOWLING IF SBP IS LESS THAN OR EQUAL 90 OR GREATER THEN OR EQUAL TO 160 Atorvastatin Calcium 10 Mg Tablet 10 Mg PO HS Assessment/Pt Instructions PCP in 1 week detention rounds Discharge Planning: <30 minutes discharge planning Discharge Instructions Discharge Diet: No Restrictions Discharge Physical Examination Vital Signs Vital Signs Date Time Temp Pulse Resp B/P (MAP) Pulse Ox O2 Delivery O2 Flow Rate FiO2 08/11/22 11:21 35.9 65 18 113/69 (84) 88 Room Air 08/11/22 08:00 5.00 88 General Appearance: No Apparent Distress, Chronically ill Respiratory: Lungs Clear Allergies: Coded Allergies: Penicillins (Verified Allergy, Unknown, 08/05/22) prednisone (Verified Allergy, Unknown, 08/05/22) Discharge Summary Date of Admission Aug 05, 2022 at 08:52 Date of Discharge Discharge Date: Aug 11, 2022 Discharge Diagnosis Move to 4th PT OT Needs [place] ADRIANA TOWNSEND Aug 11, 2022 11:28
[2022-08-11 12:25] VITALS: BP 113/69
== END 2022-08-11 13:19 | DRG 286 ==
LOC: EDUNIT# 03:51 → ER FS 03:53 → ICU 08:52 → 4TH 08-10 10:45
PROVIDERS: ADMIT Family Medicine; ATTEND Internal Medicine
PROC: 5A09357 Assistance with Respiratory Ventilation, Less than 24 Consecutive Hours, Continuous Positive Airway Pressure (ICD-10-PCS; 2022-08-05)
PROC: 5A0955A Assistance with Respiratory Ventilation, Greater than 96 Consecutive Hours, High Flow/Velocity Cannula (ICD-10-PCS; 2022-08-06)
PROC: 4A023N7 Measurement of Cardiac Sampling and Pressure, Left Heart, Percutaneous Approach (ICD-10-PCS; principal; 2022-08-07)
PROC: B2111ZZ Fluoroscopy of Multiple Coronary Arteries using Low Osmolar Contrast (ICD-10-PCS; 2022-08-07)
DX: I11.0 Hypertensive heart disease with heart failure (principal); I50.21 Acute systolic (congestive) heart failure; J96.01 Acute respiratory failure with hypoxia; I47.20 Ventricular tachycardia, unspecified; E87.29 Other acidosis; I97.610 Postprocedural hemorrhage of a circulatory system organ or structure following a cardiac catheterization; I48.91 Unspecified atrial fibrillation; J44.9 Chronic obstructive pulmonary disease, unspecified; I42.0 Dilated cardiomyopathy; Z20.822 Contact with and (suspected) exposure to COVID-19; N28.9 Disorder of kidney and ureter, unspecified; F17.210 Nicotine dependence, cigarettes, uncomplicated; D64.9 Anemia, unspecified; Z88.0 Allergy status to penicillin; Z88.2 Allergy status to sulfonamides
CPT/HCPCS: 36415; 71045; 80048; 80053; 81000; 82805; 83690; 83735; 83880; 84100; 84443; 84484; 85007; 85025; 85027; 85610; 86141; 86850; 86900; 86901; 86920; 87081; 87636; 93005; 93041; 93306; 93458; 94640; 94660; 94760; 94761; 99291

== ENCOUNTER → 2022-09-14 | Outpatient (CLI) | payer MEDICARE, MEDICAID ==
[~2022-09-14] MED LIST: ACET-2267 PO; AMIO200T65 PO; APIX5TAB PO; ATOR10TA66 PO; CALC500T7 PO; CARV6.252 PO; DILT-27 PO; FAMO10TA43 PO; FURO40TA4 PO; LISI5TAB20 PO; LOSA25TA41 PO; MAG355OR17 PO; MAGN400O7 PO; NYST15CR35 TP; POLY17PO6 PO; SENN1TAB76 PO; SPIR25TA5 PO
[2022-09-14 13:10] LABS: HEMATOCRIT 34 % (35-52); HEMOGLOBIN 11.2 g/dL (11.5-16.0); MEAN CORPUSCULAR HEMOGLOBIN 28 pg (25-34); MEAN CORPUSCULAR HGB CONC 33 g/dL (32-36); MEAN CORPUSCULAR VOLUME 86 fL (80-99); MEAN PLATELET VOLUME 11.2 fL (9.0-12.2); PLATELET COUNT 228 10^3/uL (130-400); WHITE BLOOD COUNT 6.7 10^3/uL (4.3-11.0)
[2022-09-15 08:43] LABS: POTASSIUM 3.8 MMOL/L (3.6-5.0)
[2022-09-15 08:44] LABS: BILIRUBIN,TOTAL 0.3 MG/DL (0.1-1.0); CREATININE SERUM 1.41 MG/DL (0.60-1.30); TOTAL PROTEIN 6.3 GM/DL (6.4-8.2)
== END ==
PROVIDERS: ATTEND Family Medicine
DX: I48.91 Unspecified atrial fibrillation (principal); E11.21 Type 2 diabetes mellitus with diabetic nephropathy
CPT/HCPCS: 80053; 83036; 85027

== ENCOUNTER → 2022-11-12 | Outpatient (CLI) | payer MEDICARE, MEDICAID | LOC: CARDFS 13:13 | PROVIDERS: ATTEND Internal Medicine Cardiovascular Disease | DX: I51.7 Cardiomegaly (principal); I50.9 Heart failure, unspecified; I35.8 Other nonrheumatic aortic valve disorders | CPT/HCPCS: 93306 ==

== ENCOUNTER → 2022-12-08 | Outpatient (CLI) | payer MEDICARE, MEDICAID ==
[2022-12-08 09:57] LABS: HEMATOCRIT 32 % (35-52); HEMOGLOBIN 10.4 g/dL (11.5-16.0); MEAN CORPUSCULAR HEMOGLOBIN 29 pg (25-34); MEAN CORPUSCULAR HGB CONC 33 g/dL (32-36); MEAN CORPUSCULAR VOLUME 88 fL (80-99); MEAN PLATELET VOLUME 11.9 fL (9.0-12.2); PLATELET COUNT 241 10^3/uL (130-400); WHITE BLOOD COUNT 6.3 10^3/uL (4.3-11.0)
[2022-12-08 10:41] LABS: BILIRUBIN,TOTAL 0.3 MG/DL (0.1-1.0); CALCIUM 8.8 MG/DL (8.5-10.1); CREATININE SERUM 2.17 MG/DL (0.60-1.30); POTASSIUM 4.6 MMOL/L (3.6-5.0); TOTAL PROTEIN 6.1 GM/DL (6.4-8.2)
[2022-12-08 10:42] LABS: ALBUMIN 3.7 GM/DL (3.2-4.5)
== END ==
PROVIDERS: ATTEND Family Medicine
DX: J81.0 Acute pulmonary edema (principal)
CPT/HCPCS: 80053; 83880; 85027